=== PATIENT | female | born 1955 | race Caucasian/White ===

== ENCOUNTER → 2019-10-22 15:00 | Outpatient (CLI) | payer OTHER, SELFPAY ==
--- NOTE | ~2019-10-22 | US_ITS ---
EXAMINATION: US abdomen complete EXAM DATE: 10/22/2019 15:29 INDICATION: Generalized abdominal pain, tenderness. TECHNIQUE: Multiple grayscale and Doppler images of the complete abdomen were obtained (by a technolo gist who performed the scan) and subsequently reviewed. There is no prior study for comparison. FINDINGS: The abdominal aorta is normal in caliber. Visualized portion IVC is patent. The pancreatic head a nd body are normal in appearance. The pancreatic tail is not visualized. There is echogenic liver parenchyma, hepatic steatosis. There are couple of cysts measuring up to 2. 6 cm. There is no evidence of intrahepatic biliary duct dilation. Portal venous flow was seen in th e hepatopedal, normal direction and has normal Doppler waveform. Common bile duct measures 5 mm, which is normal. The gallbladder wall is normal in thickness, with ex pected amount of distention. No sonographic evidence of pericholecystic fluid. There is no cholelit hiases. Technologist performing exam reports patient did not demonstrate sonographic Lockhart's sign. Please note that this sign is less reliable in patients who have received pain medication. Right kidney: There is normal contour and echogenicity. It measures 9.3 x 4.8 x 5.5 centimeters. T here are no focal renal lesions identified. There is no hydronephrosis. Left kidney: There is normal contour and echogenicity. It measures 13.7 x 5.1 x 7.2 centimeters. Th ere is a cyst in the lower pole measuring 5 cm. There is no hydronephrosis. The spleen measures 11.7 centimeters and is morphologically normal. IMPRESSION: 1. Unremarkable complete abdominal ultrasound exam. Reviewed, dictated and finalized at location B. D PERSON
== END ==
PROVIDERS: Visit Provider Physician Assistant
DX: R10.84 Generalized abdominal pain (principal)
CPT/HCPCS: 76700

== ENCOUNTER → 2020-03-17 13:44 | Outpatient (CLI) | payer OTHER, SELFPAY ==
--- NOTE | ~2020-03-17 | XR_ITS ---
XR chest 2V DATE: 03/17/2020 14:04 INDICATION: Persistent cough TECHNIQUE: 2 views COMPARISON: 04/02/2019 AP and lateral chest FINDINGS: There is chronic mild discoid scarring in the left lower lung. No pulmonary infiltrate or c onsolidation, pleural effusion or pulmonary vascular congestion or pneumothorax is detected. Borderline heart size. environmental monitoring specialist device overlies the lower left chest. No hilar or mediastinal enlargement. IMPRESSION: Chronic mild discoid scarring in the left lower lung Reviewed, dictated and finalized at location B.
== END ==
PROVIDERS: PCP Family Medicine Adolescent Medicine; Visit Provider Family Medicine Adolescent Medicine
DX: R05 Cough (principal); R91.8 Other nonspecific abnormal finding of lung field
CPT/HCPCS: 71046

== ENCOUNTER 2021-01-22 09:11 | Outpatient (CLI) | payer OTHER, SELFPAY ==
--- NOTE | ~2021-01-22 | US_ITS ---
EXAMINATION: US carotid duplex BI DATE: 01/22/2021 09:55 INDICATION: Vertebral artery dissection TECHNIQUE: Grayscale, color Doppler, and pulsed Doppler images of the cervical carotid arteries were obtained. The degree of vessel stenosis is placed in one of the following categories: normal, <50%, 5 0-69%, >=70% but less than near-occlusion, near-occlusion, or total occlusion. Note that percent sten osis relative to normal distal artery lumen diameter is indirectly measured from velocity measurement s as described by Eliecer, et al. Radiology 2003; 229:340-346. Notes: Normal: Peak systolic velocity <125 centimeters/sec and no plaque <50%. Peak systolic velocity <125 ( EDV <40; ICA/CCA PSV ratio <2.0; used these factors only a tandem lesions or low cardiac output or co ntralateral disease) 50-69 %: PSV 125-230 (EDV 40-100; ratio 2-4) >= 70% but less than near occlusion: PSV greater than 230 (EDV > 100; ratio> 4.0) Near Occlusion: PSV that is variable; markedly narrowed lumen Occlusion: Absent flow on color/spectral Doppler and no lumen on caballero scale. COMPARISON: None. FINDINGS: RIGHT: The right common carotid artery (CCA) peak systolic velocity (PSV) is 76 cm/s. The right internal car otid artery (ICA) PSV is 76 cm/s. The right ICA end-diastolic velocity (EDV) is 28 cm/s. The right IC A/CCA PSV ratio is 1.0. The external carotid artery (ECA) PSV is 78 cm/s. There is antegrade flow in the right vertebral artery. LEFT: The left CCA PSV is 67 cm/s. The left ICA PSV is 63 cm/s. The left ICA EDV is 24 cm/s. The left ICA/C CA PSV ratio is 0.9. The ECA PSV is 89 cm/s. There is antegrade flow in the left vertebral artery. IMPRESSION: 1. Less than 50% stenosis in the right internal carotid artery by sonographic criteria. 2. Less than 50% stenosis in the left internal carotid artery by sonographic criteria. Reviewed, dictated and finalized at location A. IMPRESSION: 1. Less than 50% stenosis in the right internal carotid artery by sonographic melissa yuan. 2. Less than 50% stenosis in the left internal carotid artery by sonographic bayron bowman.
== END 2021-01-22 09:12 | disposition home or self-care (01) ==
LOC: ANHIMG 09:18
PROVIDERS: PCP Family Medicine Adolescent Medicine; Visit Provider Internal Medicine Cardiovascular Disease
DX: I77.9 Disorder of arteries and arterioles, unspecified (principal); I65.23 Occlusion and stenosis of bilateral carotid arteries
CPT/HCPCS: 93880

== ENCOUNTER → 2021-02-13 02:12 | Outpatient (CLI) | payer OTHER, SELFPAY ==
[2021-02-13 23:32] LABS: SARS-CoV-2 RNA PCR Negative
== END ==
PROVIDERS: PCP Family Medicine Adolescent Medicine; Visit Provider Internal Medicine Cardiovascular Disease
DX: Z01.812 Encounter for preprocedural laboratory examination (principal); Z20.822 Contact with and (suspected) exposure to COVID-19
CPT/HCPCS: C9803; U0003; U0005

== ENCOUNTER 2021-02-16 02:15 | Day surgery (SDC) | payer OTHER, SELFPAY ==
[2021-02-15 17:05] VITALS: BMI 35.3
[2021-02-16 11:39] VITALS: BP 139/82; PULSE 67; RESP 14; TEMP 36.2; O2SAT 95
--- NOTE | 2021-02-16 11:44 | P.HPUP_ITS ---
History and Physical Update Update Date/Time: Date of service: 02/16/21 11:44 History and Physical has been reviewed, including an updated exam of the patient. There are NO changes in the patient's condition. Risks, benefits, and alternatives have been discussed and questions answered. Patient agrees to proceed with procedure. Brief history of present illness: Patient is a pleasant 65-year-old female history normal coronary anatomy, recurrent syncope, lupus, diabetes mellitus, hypertension, fibromyalgia status post Medtronic loop recorder implantation with device at end of service scheduled for loop explant and implant of new device. Due to recall of Medtronic Reveal LINQ patient had previously been informed that alternative device with Biotronik would be utilized to which she agreed. This decision regarding implantation of a new device was made with Dr. Scanlon her regular visual effects artist previously. Past medical history: As above. Social history: , no alcohol tobacco Family history: No history of sudden cardiac otherwise not relevant. Review of systems: No fevers, chills. Patient reports feeling short of breath lying flat which is chronic, wear CPAP at night and oxygen. No recent illnesses, bleeding complications. A chest pain. Chronic arthritis pain. Review 12 systems otherwise unremarkable. Physical examination: Date 7.1 95% on room air respirations 14 blood pressure 139/82 heart rate 67 87.5 kg No apparent distress alert on x3 breathing comfortably speaking sentences nonfocal exam Neck supple no jugular venous distention Cardiac exam regular rate rhythm normal S1-S2 Lungs clear to auscultation no rales or wheezes minutes breath sounds at the bases otherwise Abdominal exam is obese soft nontender positive bowel sounds Extremities trace edema bilaterally no clubbing cyanosis Psychiatric mood: Appropriate Impression/plan: History of syncope etiology unclear status post loop recorder now at end of service. Decision made previously by Dr. Scanlon to implant new loop recorder which patient has been scheduled. Due to recall Medtronic device is a new Medtronic device cannot be implanted. Alternative with Biotronik had been discussed and previously agreed upon with plans to explant the Medtronic device and in a new pocket implant the Biotronik loop recorder. Discussed this once again in patient and her verbalized understanding and agreed with the plan of care.
--- NOTE | 2021-02-16 11:51 | PM.OP ---
Procedure Note - Brief Procedure Note - Brief Date of procedure: 02/16/21 Pre-op diagnosis: end of lift(service battery, syncope Procedure performed: Previously placed Loop recorder explant with implantation of new loop recorder device. Description of procedure: Brief history present illness: Patient is a 65-year-old female with history of HTN, DM, Obesity, SLE, JOSEPH, fibromyalgia, and h/o recurrent unexplained syncope status post Medtronic Reveal LINQ loop recorder implantation 01/2017 found to be at end of service with decision made between the patient and Dr. Scanlon to implant new loop recorder for further evaluation. Medtronic Reveal LINQ loop recorder explantation: After verbal and written informed consent was obtained from the patient risks, benefits, and alternatives explained in detail the patient agreed to proceed with the plan of care as outlined above. Patient was evaluated at bedside in the cardiac catheterization lab. Patient was placed the appropriate supine position. Left anterior chest wall was prepped and draped in the usual sterile fashion. Operators in appropriate sterile garb. After localization of the subcutaneous device, the area was then locally anesthetized using approximately 35cc of 1% Lidocaine as it was initially difficult to obtain adequate patient comfort. Subsequently, an approximate 1 cm incision was then made over the previous scar. Sharp and blunt dissection were then performed freeing previously placed Medtronic loop recorder without complication. The device and pocket were clean upon removal without evidence of infection. The pocket was then copiously flushed with Ancef antibiotic solution. Pocket was clean and satisfactory hemostasis was confirmed prior to proceeding to new device implant. Biotronik loop recorder implantation: Following removal of the old device, a new implant site was selected at approximately the 3rd intercostal space which was identified and marked prior to beginning the entire procedure. The 3rd intercostal space was felt to be superior as a matter of patient comfort given her anatomy with expected satisfactory functionality in consultation with Alejandra, the Biotronik device traveling representative. Utilizing approximately 25 cc of 1% subcutaneous lidocaine was administered at the left anterior chest wall at the new site and tract. After local anesthesia was achieved, 2 fingerbreadths left of the sternum at the 3th intercostal space was again identified and a 1 cm incision was made with the included skin punch tool. Following this with the included introducer/deployment tool was inserted subcutaneously and a tract was made subcutaneously at a 45 degree angle from the sternum. The device was then unlocked and loop recorder device delivered according to health informatics instructor's instruction easily and without complication. The deployment tool was then removed. Manual pressure was held for least 10 min with excellent hemostasis. The device was then interrogated and revealed excellent fidelity and measured at 0.4 mV. The Biotronik Biomonitor IIIm SN [id number] was implanted without complication. The incision was then approximated and closed using Steristrips. The incision was then covered with a sterile dressing. Complications: None Anesthesia: local Surgeon: Jose Montejo MD Drains: No Packing: No Pathology: none sent Complications: No immediate complications Condition: stable Disposition: same day Findings: Successful explantation of [employer]IQ LINQ [id number] loop recorder and subsequent implantation of a new Biotronik Biomonitor IIIm loop recorder without complication.
[2021-02-16 14:07] VITALS: BP 149/72; PULSE 73; RESP 20; O2SAT 99
== END 2021-02-16 15:51 | disposition home or self-care (01) ==
PROVIDERS: PCP Family Medicine Adolescent Medicine; Visit Provider Internal Medicine Cardiovascular Disease
PROC: (CPT 33286; principal; 2021-02-16 11:30)
PROC: (CPT 33285; 2021-02-16 11:30)
DX: Z45.09 Encounter for adjustment and management of other cardiac device (principal); R00.2 Palpitations; I10 Essential (primary) hypertension; G47.33 Obstructive sleep apnea (adult) (pediatric); M79.7 Fibromyalgia; R55 Syncope and collapse; E11.9 Type 2 diabetes mellitus without complications; K76.0 Fatty (change of) liver, not elsewhere classified; K58.9 Irritable bowel syndrome, unspecified; M19.90 Unspecified osteoarthritis, unspecified site; M32.9 Systemic lupus erythematosus, unspecified; R42 Dizziness and giddiness; Z79.82 Long term (current) use of aspirin
CPT/HCPCS: 33285; 33286; C1764; J0690; J7040

== ENCOUNTER → 2022-07-25 16:01 | Outpatient (CLI) | payer MEDICARE, SELFPAY ==
--- NOTE | ~2022-07-25 | XR_ITS ---
EXAMINATION: XR chest 2V DATE: 07/25/2022 16:40 INDICATION: Shortness of breath TECHNIQUE: PA and lateral views of the chest are obtained. COMPARISON: 03/17/2020 FINDINGS: There is chronic atelectasis or scarring of the left lung base. No acute airspace opacities are identified. No pleural effusion or pneumothorax. The cardiomediastinal silhouette is normal. The re is mild thoracic spondylosis. A cardiac monitoring device is implanted in the left lower anterior chest wall. IMPRESSION: 1. No acute cardiopulmonary abnormality. Reviewed, dictated and finalized at location F. ON PICTURES CARTOONIST
== END ==
PROVIDERS: PCP Family Medicine Adolescent Medicine; Visit Provider Physician Assistant
DX: R06.02 Shortness of breath (principal)
CPT/HCPCS: 71046

== ENCOUNTER 2022-08-06 06:55 | Outpatient (CLI) | payer MEDICARE, SELFPAY ==
--- NOTE | ~2022-08-06 | CT_ITS ---
EXAMINATION: CTA chest PE protocol DATE: 08/06/2022 07:23 INDICATION: New onset dyspnea, tachycardia. Cough. TECHNIQUE: Computed tomography angiography (CTA) of the chest was performed with 100 mL Omnipaque-350 intravenous contrast timed to evaluate the pulmonary arteries. Coronal maximum intensity projection 3D-reconstructions were created by the technologist. Automated exposure control and iterative reconst ruction technique were employed. Exam dose: 463.78 mGy-cm total exam DLP. COMPARISON: 07/25/2022 2 view chest 01/04/2013 CT chest high resolution scan FINDINGS: Patchy groundglass density of the base of the lingula and involving both lower lobes, sugge sting atelectasis. 5 mm anterior segment left upper lobe pulmonary nodule (series 4 image 30). 2.5 mm left apical high density nodule, likely a small calcified pulmonary granuloma (series 4 image 18). 2.5 mm lingular peripheral nodular density (image 51). Possible 6 minimal new left lower lobe pulmonary nodular density (image 62). No evidence of pulmonary embolism. No thoracic aortic aneurysm or dissection. No hilar or mediastinal mass lesion or lymphadenopathy. Cardiomegaly. No pericardial or pleural effusion. Small sliding hiatal hernia. Included portions of the adrenal glands are unremarkable. 2.6 cm left hepatic cyst suspected 1 cm right hepatic cyst. Included skeletal structures are unremarkable. IMPRESSION: Mild atelectasis of the lingula and lower lobes Occasional pulmonary nodular densities; if there are no significant risk factors such as smoking or r trend investigator exposure, consider CT thorax follow-up in 12 months; if there are risk factors for lung cancer, consider [address] thorax follow-up Cardiomegaly Small sliding hiatal hernia Probable hepatic cysts Reviewed, dictated and finalized at Location A. Reviewed, dictated and finalized at location B. CASTING MACHINE OPERATOR HELPER IMPRESSION: Mild atelectasis of the lingula and lower lobes Occasional pulmonary nodular densities; if there are no significant risk factor s such as smoking or radon exposure, consider CT thorax follow-up in 12 months; if there are risk factors for lung cancer, consider [address] thorax follow-u p Cardiomegaly Small sliding hiatal hernia Probable hepatic cysts
[2022-08-06 07:19] LABS: Estimated Glomerular Filt Rate > 60
== END 2022-08-06 06:56 | disposition home or self-care (01) ==
PROVIDERS: PCP Family Medicine Adolescent Medicine; Visit Provider Physician Assistant
DX: R06.02 Shortness of breath (principal); J98.11 Atelectasis; R91.8 Other nonspecific abnormal finding of lung field; I51.7 Cardiomegaly; K44.9 Diaphragmatic hernia without obstruction or gangrene; K76.89 Other specified diseases of liver
CPT/HCPCS: 71275; Q9967

== ENCOUNTER 2022-11-12 13:47 | Outpatient (CLI) | payer MEDICARE, SELFPAY ==
--- NOTE | ~2022-11-12 | US_ITS ---
EXAMINATION: US venous doppler LE DATE: 11/12/2022 14:22 INDICATION: M79.604 - Pain in right leg . TECHNIQUE: Grayscale images without and with compression and Doppler images of the right lower extrem ity veins were obtained. COMPARISON: None FINDINGS: The right common femoral vein, profunda (deep) femoral vein, femoral vein, popliteal vein, peroneal v ein, posterior tibial veins, gastrocnemius vein, and greater saphenous vein are patent. IMPRESSION: 1. Patent right lower extremity veins. No evidence of deep venous thrombosis. Reviewed, dictated and finalized at location K. COMMUNICATIONS MANAGER
== END 2022-11-12 13:48 | disposition home or self-care (01) ==
PROVIDERS: PCP Family Medicine Adolescent Medicine; Visit Provider Physician Assistant
DX: M79.604 Pain in right leg (principal)
CPT/HCPCS: 93971

== ENCOUNTER 2023-07-23 12:27 | Outpatient (CLI) | payer MEDICARE, SELFPAY ==
[2023-07-23 13:22] LABS: Basophils Absolute Auto 0.1 K/mm3 (0.0-0.1); Basophils Percent Auto 0.9 % (0.2-1.2); Eosinophils Absolute Auto 0.1 K/mm3 (0-0.3); Eosinophils Percent Auto 1.3 % (0-4.4); Hematocrit 46.9 % (37.0-47.0); Immature Granulocyte Absolute 0.08 K/mm3 (0.00-0.031); Immature Granulocyte Percent A 0.8 % (0-0.5); Lymphocytes Absolute Auto 0.96 K/mm3 (0.9-3.2); Lymphocytes Percent Auto 9.1 % (18.3-44.2); Mean Corpuscular Hemoglobin 30.2 pg (26-34); Mean Corpuscular Volume 94.6 fl (80-100); Mean Platelet Volume 10.1 fl (7.4-10.4); Monocytes Absolute Auto 0.5 K/mm3 (0.1-0.6); Monocytes Percent Auto 4.7 % (2.6-8.5); Neutrophils Absolute Auto 8.8 K/mm3 (1.3-6.7); Neutrophils Percent Auto 83.2 % (45.5-73.1); Platelet Count Result 299 k/mm3 (150-375); Red Blood Count 4.96 M/mm3 (4.2-5.4); Red Cell Distribution Width 13.2 % (11.5-14.5); White Blood Count 10.6 K/mm3 (4.5-10.0)
[2023-07-23 13:31] LABS: Alanine Aminotransferase 40 U/L (6-35); Albumin Level 4.4 g/dL (3.5-5.1); Alkaline Phosphatase 91 U/L (38-126); Anion Gap 10 mmol/L (8-16); Aspartate Amino Transferase 37 U/L (14-36); Bilirubin,Total 0.9 mg/dL (0.2-1.3); Blood Urea Nitrogen 25 mg/dL (7-17); Calcium 9.4 mg/dL (8.4-10.2); Carbon Dioxide 27 mmol/L (22-30); Chloride 96 mmol/L (98-107); Estimated Glomerular Filt Rate > 60; Glucose 397 mg/dL (65-110); Potassium 4.3 mmol/L (3.4-5.0); Sodium 133 mmol/L (137-145)
[2023-07-23 13:53] LABS: Hemoglobin A1C 9.6 % (<5.7)
== END 2023-07-23 12:28 | disposition home or self-care (01) ==
PROVIDERS: PCP Family Medicine Adolescent Medicine; Visit Provider Internal Medicine Cardiovascular Disease
DX: Z01.810 Encounter for preprocedural cardiovascular examination (principal); R94.39 Abnormal result of other cardiovascular function study; R06.09 Other forms of dyspnea; R07.89 Other chest pain
CPT/HCPCS: 36415; 80053; 83036; 85025

== ENCOUNTER 2024-03-02 11:53 | Outpatient (CLI) | payer MEDICARE, SELFPAY ==
--- NOTE | ~2024-03-02 | XR_ITS ---
Left Knee Technique: AP, lateral, and sunrise views were obtained. Clinical History: Injury Findings: No fracture or dislocation is seen. Osseous alignment is anatomic. There is minimal tricomp artmental spurring. Soft tissues are unremarkable. No joint effusion is seen. Impression: Minimal degenerative spurring. Reviewed, dictated and finalized at [facility]. Impression: Minimal degenerative spurring.
== END 2024-03-02 11:54 ==
LOC: MICIMG 11:56
PROVIDERS: PCP Family Medicine Adolescent Medicine; Visit Provider Family Medicine Adolescent Medicine
DX: M17.12 Unilateral primary osteoarthritis, left knee (principal)
CPT/HCPCS: 73562

== ENCOUNTER 2025-01-14 09:49 | Outpatient (CLI) | payer MEDICARE, SELFPAY ==
--- OUTSIDE RECORDS SUMMARY | 2025-01-14 09:56 | XMS_ITS | Clinical Summary ---
Author Organization 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 Elevated LFT's Blindness, Elevated liver enzymes Latex Rash Medium 09/09/2016 Nitrofurantoin Swelling,Rash High 11/12/2018 Sulfa (Sulfonamide Antibiotics) Shortness of breath,Urticaria High 12/25/2017 Sulfasalazine Shortness of breath,Urticaria High 12/25/2017 Medications aspirin 81 mg tablet take 1 tablet (81MG) by oral route every day [address] (NexIUM) 40 mg capsule take 1 capsule (40MG) by oral route every day 0 2 Active fluticasone (FLONASE) 50 mcg/actuation nasal spray inhale 2 spray by Intranasal route every day in each nostril 0 spray 0 6 Active ALPRAZolam (XANAX) 1 mg tablet take 1 tablet by oral route 3 times every day 0 0 6 Active oxygen 4 L/min by Not Applicable route nightly Active benzonatate (TESSALON) 200 mg capsule TK ONE C PO TID PRN 0 9 Active nitroglycerin (NITROSTAT) 0.[address] 1 TABLET UNDER THE TONGUE PRN FOR CHEST PAIN OR DYSPNEA 9 Active HYDROcodone-aceta minophen (NORCO) 5-325 mg per tablet 0 Active loratadine (CLARITIN) 10 mg tablet Take 1 tablet (10 mg total) by mouth daily Active ascorbic acid with telma hips 500 mg tablet 0 Active ferrous sulfate 325 mg (65 mg of elemental iron) tablet Take 1 tablet (325 mg total) by mouth every other day 0 Active azelastine (ASTELIN) 137 mcg (0.1 %) nasal spray USE 1 SPRAY IN EACH NOSTRIL TWICE DAILY 1 Active aluminum-magnesiu m hydroxide-simethi cone (MAALOX MAX) suspension 400-400-40 mg/5 mL Take by mouth as needed Active psyllium 0.52 gram capsule Take 1 capsule (0.52 g total) by mouth 2 (two) times a day 2 Active multivitamin capsule Take 1 capsule by mouth daily Active furosemide (LASIX) 20 mg tablet Take 2 tablets (40 mg total) by mouth daily 2 Active propranolol LA (INDERAL LA) 120 mg 24 hr capsule Take 1 capsule (120 mg total) by mouth daily 3 Active Flutura SolutionsTouch Verio Flex meter misc as directed 3 Active Flutura SolutionsTouch Verio test strips strip USE TO TEST ONCE A DAY 3 Active Flutura SolutionsTouch Delica Plus Lancet 30 gauge misc USE TO TEST GLUCOSE ONCE A DAY 4 Active metFORMIN XR (GLUCOPHAGE XR) 500 mg 24 hr tablet Take 1 tablet (500 mg total) by mouth 2 (two) times a day 4 Active primidone (MYSOLINE) 50 mg tablet Take 2 tablets (100 mg total) by mouth nightly 4 Active alendronate (FOSAMAX) 70 mg tablet Take 1 tablet (70 mg total) by mouth every 7 days 4 Active calcium carbonate-vitamin D3 (CALTRATE 600 + D) 1500 mg (600 mg elemental) -400 units per tablet Take 1 tablet by mouth daily Active atorvastatin (LIPITOR) 20 mg tabletIndications :Hyperlipidemia associated with type 2 diabetes mellitus (HCC) Take 1 tablet (20 mg total) by mouth daily 90 tablet 3 4 Active zinc gluconate 50 mg tablet Take 1 tablet (50 mg total) by mouth daily Active budesonide-formot Skyler (SYMBICORT) 160-4.5 mcg/actuation inhaler Inhale 2 puffs 2 (two) times a day Active clobetasoL (TEMOVATE) 0.05 % cream Apply topically 5 Active Mounjaro 10 mg/0.5 mL pen injector injection Inject 0.5 mL (10 mg total) under the skin once a week 5 Active azaTHIOprine (IMURAN) 50 mg tabletIndications :Systemic lupus erythematosus with other organ involvement, unspecified SLE type (HCC) Take 2 tablets (100 mg total) by mouth daily 180 tablet 1 5 Active Active Problems Problem Noted Date Diagnosed Date Abnormal stress test 07/01/2023 Stress incontinence 11/08/2021 Left flank pain 11/08/2021 Recurrent UTI 11/08/2021 Visit for wound check 03/05/2021 Fatty liver disease, nonalcoholic 02/23/2020 MARTE (dyspnea on exertion) 02/05/2019 Left arm pain 11/03/2018 Status post placement of implantable loop record er 03/21/2018 Overview (02/19/2021): [employer]-Biomonitor III ILR. Dx; Syncope, Palpitations. DOI 02/16/2021. [place]. Biotronik remote. Medtronic Linq ILR explanted. 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 Overview (12/14/2016): Vertebral artery disease Edema of lower extremity 05/15/2016 Overview (12/14/2016): Edema of both legs Hyperlipidemia LDL goal <70 05/15/2016 Overview (12/14/2016): Hyperlipidemia LDL goal <70 Hypertension associated with diabetes 02/22/2016 Overview (12/13/2016): Essential hypertension Palpitations 02/22/2016 Overview (12/14/2016): Palpitations Chest pressure 02/22/2016 Overview (12/14/2016): Atypical chest pain Obesity with body mass index 30 or greater 02/21 Overview (12/14/2016): Obesity (BMI 35.0-39.9 without comorbidity) Abnormal electrocardiography 02/22/2016 Overview (12/14/2016): Abnormal EKG Rash 12/21/2012 Osteoporosis 01/05/2011 Overview (12/19/2017): Description: Osteoporosis Fibromyalgia 12/08/2010 Overview (12/19/2017): Description: Fibromyalgia Assessment & Plan (10/31/2021 5:38 PM CAREER PROFESSIONAL): Trigger point pain and hand pain without exam findings suggestive of active inflammation. She remains off of lyrica at this time. - continue to monitor symptoms off of lyrica - continue physical therapy Systemic lupus erythematosus 12/08/2010 Overview (12/19/2017): Description: Systemic Lupus Erythematosus Assessment & Plan (10/31/2021 5:41 PM CAREER PROFESSIONAL): Currently without exam features concerning for active inflammation of joints and improved skin rash with decreased azathioprine dosing. Side effects from medication also improved with decreased dosing. Currently, complaints of pain and fatigue appear more consistent with fibromyalgia. - further decrease to azathioprine 50 mg BID - encouraged patient to receive COVID-19 booster dose 6 months after last dose (due: 11/2021) Trochanteric bursitis 12/08/2010 Overview (12/19/2017): Description: Trochanteric Bursitis Encounters Date Type Department Care Team Description 01/10/2025 8:00 AM CDT Ancillary Procedure [facility] Cardiology [address] [place] [phone] Status post placement of implantable loop recorder (Primary Dx); Syncope, unspecified syncope type; Palpitations 12/08/2024 1:46 PM CDT - 12/08/2024 11:59 PM CDT Hospital Encounter [address] [address] Systemic lupus erythematosus with other organ involvement, unspecified SLE type (HCC); Fibromyalgia; High risk medication use Discharge Disposition: Discharge to home or self care 12/08/2024 12:10 PM CDT Lab [facility] Endocrinology Metabolism and Lipid [address] [facility] [address] [place] [phone] Systemic lupus erythematosus with other organ involvement, unspecified SLE type (HCC); Fibromyalgia; High risk medication use 12/08/2024 11:00 AM CDT Office Visit [facility] Rheumatology [address] [facility] [address] [place] [address] Rosa Tapia MD Systemic lupus erythematosus with other organ involvement, unspecified SLE type (HCC) (Primary Dx); Fibromyalgia; High risk medication use 11/29/2024 7:45 AM CDT Ancillary Procedure [facility] Cardiology [address] [place] [phone] Status post placement of implantable loop recorder (Primary Dx); Syncope, unspecified syncope type; Palpitations 10/18/2024 7:30 AM CAREER PROFESSIONAL Ancillary Procedure [facility] Cardiology [address] [place] [phone] Status post placement of implantable loop recorder (Primary Dx); Syncope, unspecified syncope type; Palpitations 10/18/2024 Orders Only [facility] Cardiology [address] [place] [phone] Kit Scanlon MD Syncope, unspecified syncope type (Primary Dx); Status post placement of implantable loop recorder; Palpitations from Last 3 Months Surgical History Surgery Date Site/Laterality Comments HYSTERECTOMY SECTION BACK SURGERY CATARACT EXTRACTION Medical History Medical History Date Comments Lupus Diabetes mellitus (HCC) Fibromyalgia Osteoarthritis Hypertension Fatty liver Irritable bowel disease Family History Medical History Relation Name Comments Heart disease Father Stroke Maternal Grandfather Stroke; Heart attack Maternal Grandmother Myocard ial infarction; Cause of : Myocardial infarction Lupus Mother Other Mother Lupus; Cause of : Lupus Relation Name Status Comments Father Maternal Grandfather Maternal Grandmother Mother Social History Tobacco Use Types Packs/Day Years Used Date Smoking Tobacco: Never Smokeless Tobacco: Never Tobacco Cessation:Counseling Given: Not Answered Alcohol Use Standard Drinks/Week Comments Yes 2 (1 standard drink = 0.6 oz pur e alcohol) monthly AUDIT-C Answer Date Recorded Q1: How often do you have a drink containing alcohol? Never 07/25/2023 Q2: How many drinks containi ng alcohol do you have on a typical day when you are drinking? Patient does not drink Q3: How often do you have si x or more drinks on one occasion? Never 07/25/2023 Personal Safety Answer Date Recorded Have you ever been in or are you currently in a harmful physical or emotional relationship or is someone making you feel afraid or unsafe? Denies 07/25/2023 Comments No Sex and Gender Information Value Date Recorded Sex Assigned at Not on file Legal Sex Female 9:06 AM CAREER PROFESSIONAL Gender Identity Female 01/18/2020 10:01 AM CDT Sexual Orientation Straight 01/18/2020 10 :00 AM CDT Obstetrics History Last Filed Vital Signs Vital Sign Reading Time Taken Comments Blood Pressure 115/78 12/08/2024 11:15 AM CDT Pulse 103 12/08/2024 11:15 AM CDT Temperature 36.8 C (98.3 F) 12/08/2024 11:15 AM CDT Respiratory Rate 16 07/25/2023 8:42 AM CAREER PROFESSIONAL Oxygen Saturation 95% 09/21/2024 9:37 AM CAREER PROFESSIONAL Inhaled Oxygen Concentration - - Weight 85.7 kg (189 lb) 12/08/2024 11:15 AM CDT Height 157.5 cm (5' 2 ) 12/08/2024 11:15 AM CDT Body Mass Index 34.57 12/08/2024 11:15 AM CDT Plan of Treatment Health Maintenance Due Date Last Done Comments Albumin Creatinine Ratio, Urine 1953 Colon Cancer Screening-Colonoscopy 1955 Depression Screening 1955 Hepatitis C Screening 1955 Dilated Eye Exam 1953 Foot Exam 1953 Hepatitis B Screening 12/11/1971 Zoster Vaccine (1 of 2) 1972 Well Visit 65+ 2018 Covid-19 Vaccine (2023-2 5 season) 2024 06/16/2023, 07/22/2022, 12/05/2021, Additional history exists Fall Risk Assessment 07/25/2024 07/25/2023 Pneumococcal vaccine 65+ (4 of 4 - PCV20 or PCV21) 04/25/2025 04/25/2020, 04/27/2015, 11/07/2009 Hemoglobin A1C 05/05/2025 11/05/2024, 05/10, 09/03/2023, Additional history exists Influenza Vaccine (Season Ended) 2025 06/16/2023, 07/22/2022, 06/21/2020, Additional history exists Lipid Panel 09/21/2025 09/21/2024, 03/09, 06/11/2023, Additional history exists Breast Cancer Screening-Mammogram 11/23/2025 11/23/2024, 11/23/2024, 11/21/2023, Additional history exists eGFR 12/08/2025 12/08/2024, 05/10, 12/24/2023, Additional history exists Osteoporosis Screening-Bone Density Scan 01/04/2026 01/05/2024, 01/05/2024, 02/02/2019, Additional history exists DTaP/Tdap/Td Vaccine (2 - Td or Tdap) 06/16/2033 06/16/2023 Medical Devices Implanted Type Area [employer] Device Identifier Shelf Expiration Date Model / Serial / Lot SkillSlate Device Closure Vascade Od5 Fr Femoral Artery [id number] - [id number] Implanted:Qty: 1 on 07/25/2023 by Noma Leblanc MD at [facility] [employer] 01/18/2024 [id number] / / [id number] Procedures Procedure Name Priority Date/Time Associated Diagnosis Comments DEVICE CHECK - REMOTE Routine 01/10/2025 3:09 PM CDT Syncope, unspecified syncope type Palpitations URINALYSIS, MICROSCOPIC ONLY Routine 12/08/2024 11:59 AM CDT Systemic lupus erythematosus with other organ involvement, unspecified SLE type (HCC) Fibromyalgia High risk medication use ANTI-DOUBLE STRANDED DNA ANTIBODIES Routine 12/08/2024 11:59 AM CDT Systemic lupus erythematosus with other organ involvement, unspecified SLE type (HCC) Fibromyalgia High risk medication use C4 COMPLEMENT Routine 12/08/2024 11:59 AM CDT Systemic lupus erythematosus with other organ involvement, unspecified SLE type (HCC) Fibromyalgia High risk medication use C3 COMPLEMENT Routine 12/08/2024 11:59 AM CDT Systemic lupus erythematosus with other organ involvement, unspecified SLE type (HCC) Fibromyalgia High risk medication use ERYTHROCYTE SEDIMENTATION RATE Routine 12/08/2024 11:59 AM CDT Systemic lupus erythematosus with other organ involvement, unspecified SLE type (HCC) Fibromyalgia High risk medication use CRP (ACUTE PHASE) Routine 12/08/2024 11: 59 AM CDT Systemic lupus erythematosus with other organ involvement, unspecified SLE type (HCC) Fibromyalgia High risk medication use COMPREHENSIVE METABOLIC PANEL Routine 12/08/2024 11:59 AM CDT Systemic lupus erythematosus with other organ involvement, unspecified SLE type (HCC) Fibromyalgia High risk medication use CBC WITH AUTO DIFFERENTIAL Routine 12/08/2024 11:59 AM CDT Systemic lupus erythematosus with other organ involvement, unspecified SLE type (HCC) Fibromyalgia High risk medication use URINE CULTURE Routine 12/08/2024 11:59 AM CDT URINALYSIS AND REFLEX TO MICROSCOPIC AND CULTURE Routine 12/08/2024 11:59 AM CDT Systemic lupus erythematosus with other organ involvement, unspecified SLE type (HCC) Fibromyalgia High risk medication use DEVICE CHECK - REMOTE Routine 11/30/2024 7:52 AM CDT Syncope, unspecified syncope type Palpitations DEVICE CHECK - REMOTE Routine 10/18/2024 10:02 AM CAREER PROFESSIONAL Syncope, unspecified syncope type Palpitations POCT LIPID PANEL Routine 09/21/2024 10:2 1 AM CAREER PROFESSIONAL Lipid screening HEMOGLOBIN A1C Routine 06/02/2024 10:20 AM CDT Systemic lupus erythematosus with other organ involvement, unspecified SLE type (HCC) Fibromyalgia High risk medication use from Last 3 Months or Most Recently Relevant to Health Maintenance Results * DEVICE CHECK - REMOTE (01/10/2025 3:09 PM CDT) Anatomical Region Laterality Modality Other Narrative 01/13/2025 8:24 AM CDT [employer]-Biomonitor III ILR. Dx; Syncope, Palpitations. DOI 02/16/2021. [place]. [place] [employer] remote. Routine ILR remote. Normal device function. Battery function-Ok. Presenting rhythm: VS, regular 90 bpm. Medications: ASA 81 mg, Propranolol Counters since last scheduled transmission on 11/29/2024. No auto or patient recorded episodes noted. See scanned report. [employer] remote f/u 02/21/2025. Kina Almeida, RN Kit Scanlon MD CV CARDIAC [facility] Final Result * Anti-double stranded DNA abs (12/08/2024 11:59 AM CDT) dsDNA Ab 1.0 <=4.0 IUnits/mL Comment: Interpretive Data Negative: < or = 4 IUnits/mL Indeterminate: 5 - 9 IUnits/mL Positive: > or = 10 IUnits/mL Current interpretive data was last revised on 2017. Blood 12/08/2024 11:5 9 AM CDT 12/08/2024 2:19 PM CDT Rosa Tapia MD LAB BLOOD ORDERABLES Final Result Performing Organization Address [facility]/ZIP Co de Phone Number [facility] Department [place] [address] * C4 complement (12/08/2024 11:59 AM CDT) Pathologist [facility] Complement C4 29.1 10.0 - 40.0 mg/dL Blood 12/08/2024 11:5 9 AM CDT 12/08/2024 2:19 PM CDT Rosa Tapia MD LAB BLOOD ORDERABLES Final Result Performing Organization Address [facility] de Phone Number [facility] [place] [place] [address] * (ABNORMAL) Urinalysis reflex to microscopic and culture Urine, clean voided (12/08/2024 11:59 AM CDT) Color, ur Yellow Yellow Clarity, ur Clear Clear [facility] Specific gravity, ur 1.025 1.003 - 1.030 [facility] pH, urine 6.5 [facility] Comment: Interpretive Data U rine pH is affected by diet, medications, systemic acid-base disturbances, and renal tubular function. pH may affect urinary stone formation. For example, urine pH below 6.0 may help reduce the tendency for calcium phosphate stones and pH greater than 6.0 may reduce the tendency for uric acid stone formation. Source: [facility] Laboratories Current Interpretive Data was last revised on 2017 Protein, ur ql Trace Negative [facility] Glucose, ur ql Negative Negative [facility] Ketones, ur Negative Negative [facility] Bilirubin, ur Negative Negative [facility] Blood, ur Negative Negative [facility] Urobilinogen, ur <2.0 <2.0 mg/dL [facility] Nitrite, ur Negative Negative [facility] Leukocyte esterase, ur 3+(A) Negative [facility] UA reflex comment Reflex to microscopic UA will be performed. [facility] Urine, clean voided 12/08/2024 11:59 AM CDT 12/08/2024 2:19 PM CDT us Rosa Tapia MD LAB MICROBIOLOGY - GENERAL ORDERABLES Final Result [facility] Department [place] [address] * (ABNORMAL) CBC with auto differential (12/08/2024 11:59 AM CDT) White Blood Count 6.8 3.6 - 11.2 K/uL [facility] RBC 4.90 3.63 - 4.92 M/uL [facility] Hemoglobin 14.8 11.9 - 15.5 g/dL [facility] Hematocrit 44.7(H) 36.1 - 44.3 % [facility] MCV 91.3 80.0 - 97.6 fL [facility] MCH 30.2 26.7 - 33.7 pg [facility] MCHC 33.1 32.7 - 35.5 g/dL [facility] RBC Dist Width 14.5 12.3 - 17.0 % [facility] Platelet Count 315 140 - 440 K/uL [facility] MPV 7.9 6.8 - 10.4 fL [facility] Neutrophils % 70.6 38.7 - 74.5 % [facility] Lymphocyte % 19.3(L) 20.0 - 54.3 % [facility] Monocytes % 6.1 4.3 - 13.5 % [facility] Eosinophils % 3.0 0.0 - 6.0 % [facility] Basophil % 1.0 0.0 - 3.0 % [facility] Absolute Neutrophil 4.8 1.8 - 6.6 K/uL [facility] Absolute Lymphocyte 1.3 0.8 - 3.3 K/uL [facility] Absolute Monocyte 0.4 0.2 - 1.2 K/uL [facility] Absolute Eosinophil 0.2 0.0 - 0.5 K/uL [facility] Absolute Basophil 0.1 0.0 - 0.2 K/uL [facility] Nucleated RBC % 0.0 0.0 - 0.4 /100 WBC [facility] Blood 12/08/2024 11:5 9 AM CDT 12/08/2024 12:51 PM CDT Rosa Tapia MD LAB BLOOD ORDERABLES Final Result Performing Organization Address City/[facility] Co de Phone Number [facility] * (ABNORMAL) Urinalysis, microscopic only (12/08/2024 11:59 AM CDT) WBC, ur 21-50(A) 0 - 5 /HPF RBC, ur 11-20(A) 0 - 2 /HPF [facility] Epithelial cells, squamous, ur 1-5 0 - 5 /HPF [facility] Epithelial cells, renal, ur 1-5(A) 0 - 0 /HPF [facility] Bacteria, ur Trace(A) [facility] Mucous, ur Present(A) [facility] Calcium oxalate crystals, ur 2+(A) [facility] Culture Reflex Comment Reflex to urine culture will be performed. [facility] Urine, clean voided 12/08/2024 11:59 AM CDT 12/08/2024 2:19 PM CDT us Rosa Tapia MD LAB URINE ORDERABLES Final Result Performing Organization Address City/[facility]/ZIP Co de Phone Number [facility] [place] [address] * Erythrocyte sedimentation rate (12/08/2024 11:59 AM CDT) Erythrocyte sedimentation rate 10 1 - 30 mm/hr Blood 12/08/2024 11:5 9 AM CDT 12/08/2024 2:19 PM CDT Rosa Tapia MD LAB BLOOD ORDERABLES Final Result Performing Organization Address [facility] de Phone Number [facility] [place] [address] * Urine culture Urine, clean voided (12/08/2024 11:59 AM CDT) Report Final Report: Less than 100,000 colonies/mL (clinically insignificant growth based on current clinical standards) Organism (CLINICALLY INSIGNIFICANT GROWTH [facility] Urine, clean voided 12/08/2024 11:59 AM CDT 12/08/2024 4:14 PM CDT Narrative [facility] - 12/09/2024 6:38 PM CDT Urine culture reflexed based upon urinalysis results. Testing performed by [facility] Microbiology Laboratory ([phone]) Rosa Tapia MD LAB MICROBIOLOGY - GENERAL ORDERABLES Final Result Performing Organization Address [facility] de Phone Number [facility] [place] [address] * C3 complement (12/08/2024 11:59 AM CDT) Complement C3 165.0 90.0 - 180.0 mg/dL Blood 12/08/2024 11:5 9 AM CDT 12/08/2024 2:19 PM CDT Rosa Tapia MD LAB BLOOD ORDERABLES Final Result Performing Organization Address [facility] Co de Phone Number [facility] Department [place] [address] * CRP (acute phase) (12/08/2024 11:59 AM CDT) C-Reactive Protein, Acute 3.6 <5.0 mg/L [facility] Blood 12/08/2024 11:5 9 AM CDT 12/08/2024 12:51 PM CDT us Rosa Tapia MD LAB BLOOD ORDERABLES Final Result [facility] * (ABNORMAL) Comprehensive metabolic panel (12/08/2024 11:59 AM CDT) Total Protein 7.4 6.1 - 8.4 g/dL [facility] Albumin 4.1 3.5 - 5.2 g/dL [facility] Calcium 9.4 8.6 - 10.3 mg/dL [facility] BUN 16 7 - 23 mg/dL [facility] Total Bilirubin 0.24 0.20 - 1.40 mg/dL [facility] Alk Phos, Total 75 35 - 129 IU/L [facility] AST (SGOT) 21 11 - 47 IU/L [facility] ALT (SGPT) 17 6 - 53 IU/L [facility] Creatinine 0.79 0.60 - 1.10 mg/dL [facility] Sodium 143 135 - 145 mmol/L [facility] Potassium 3.7 3.3 - 5.1 mmol/L [facility] Chloride 106 95 - 107 mmol/L [facility] CO2 Content 27 21 - 29 mmol/L [facility] Glucose 130(H) 64 - 99 mg/dL [facility] Comment: NONFASTING GLUCOSE RANGE = 64-199 mg/dL FASTING GLUCOSE 64 - 99 = NORMAL FASTING GLUCOSE 100 - 125 = IMPAIRED FASTING GLUCOSE FASTING GLUCOSE >=126 = PROVISIONAL DIAGNOSIS OF DIABETES eGFR 80.4 >60.0 mL/min/1.7 3 m2 [facility] Blood 12/08/2024 11:5 9 AM CDT 12/08/2024 12:51 PM CDT Rosa Tapia MD LAB BLOOD ORDERABLES Final Result [facility] * DEVICE CHECK - REMOTE (11/30/2024 7:52 AM CDT) Anatomical Region Laterality Modality Other Narrative 12/02/2024 12:09 PM CDT [employer]-Biomonitor III ILR. Dx; Syncope, Palpitations. DOI 02/16/2021. [place]. [employer] remote. Routine ILR remote. Normal device function. Battery function-Ok. Presenting rhythm: VS, regular 90 bpm. Medications: ASA 81 mg, Propranolol Counters since last scheduled transmission on 10/18/2024. No auto or patient recorded episodes noted. See scanned report. [employer] remote f/u 01/10/2025. Kina Almeida RN Kit Scanlon MD [facility] Final Result * DEVICE CHECK - REMOTE (10/18/2024 10:02 AM CAREER PROFESSIONAL) Anatomical Region Laterality Modality Other Narrative 10/25/2024 12:26 PM CAREER PROFESSIONAL Biotronik lllm implanted on February 16, 2021 for syncope. Patient had a routine remote transmission on October 18, 2024 Medications: ASA 81 mg daily Interrogation of the patients device demonstrates appropriate loop function (0) Symptom events Auto Device detected events of, (0) Pause, (0) Bradycardia, (0) Tachy, (0) AT, (0) AF, Presenting Rhythm: Normal sinus rhythm at 96 bpm Battery: OK at < 50% Plan: 1) Scheduled routine remote with no new episode. 2) Continue to monitor remotely. Yordan Steinberg Device Primer Inserting Machine Operator Kit Scanlon MD CV CARDIAC SERVICES PROCE DURES Final Result * POCT lipid panel (09/21/2024 10:21 AM CAREER PROFESSIONAL) Cholesterol, POC 152 mg/dL HDL, POC 45 mg/dL Triglycerides, POC 183 mg/dL LDL Cholesterol POC 70 mg/dL Chol/HDL Ratio, POC 1.5 Non-HDL Cholesterol, POC 106 mg/dL Cholesterol Total, POC 152 mg/dL Capillary blood 09/21/2024 1 0:21 AM CAREER PROFESSIONAL Blanquita Morales NP POINT OF CARE TEST ORDERA BLES Final Result from Last 3 Months or Most Recently Relevant to Health Maintenance Additional Health Concerns Infection Onset Date Last Indicated 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
--- OUTSIDE RECORDS SUMMARY | 2025-01-14 09:57 | XMS_ITS | Encounter Summary ---
Author Organization [facility] Address [address] [place] [address] Care Team Providers Care Piano Case And Bench Assembler Name Role Phone Lalo Le MD Primary Care Prov ider Encounter Details Date Type Department Care Team (Late st Contact Info) Description 02/04/2017 Orders Only [facility] ProviderMarquise MD [address] [place] [id number] Social History Tobacco Use Types Packs/Day Years Used Date Smoking Tobacco: Never Alcohol Use Standard Drinks/Week Comments Yes 0 (1 standard drink = 0.6 oz pur e alcohol) Comments Unknown Sex and Gender Information Value Date Recorded Sex Assigned at Not on file Legal Sex Female 9: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
--- OUTSIDE RECORDS SUMMARY | 2025-01-14 09:57 | XMS_ITS | Encounter Summary ---
Author Organization [facility] Address [address] [place] [address] Care Team Providers Care Engineering Executive Name Role Phone Lalo Le MD Primary Care Provider + Reason for Visit * Reason Onset Date Comments Pre Op Call 03/31/2020 Encounter Details Date Type Department Care Team ([facility] Contact Info) Description 03/31/2020 Telephone [facility] [address] [place] [phone] Jamaal Stone, SAADIA Pre Op Call Social History Tobacco Use Types Packs/Day Years Used Date Smoking Tobacco: Never Smokeless Tobacco: Never Alcohol Use Standard Drinks/Week Comments No 0 (1 standard drink = 0.6 oz pur e alcohol) Comments No Sex and Gender Information Value Date Recorded Sex Assigned at Not on file Legal Sex Female 6:16 AM STRAW BOSS Gender Identity Not on file Sexual Orientation Not on file COVID-19 Exposure Response Date Recorded In the last month, have you been in contact with someone who was confirmed or suspected to have Coronavirus / COVID-19? Unable to assess 03/28/2020 8:46 AM CDT documented as of this encounter Plan of Treatment Upcoming Encounters Date Type Department Care Team ([facility] Contact Info) Description 02/03/2025 3:30 PM CDT Office Visit [facility] - [facility]ermatology [address] [place] [phone] Sarah Espinoza MD [address] [place] [address] [address] [place] [phone] 03/08/2025 10:00 AM CDT Office Visit [facility] - Pulmonology [address] [place] [address], [place] [phone] Viet Lorenz MD [address] [place] [address] [address] DIV OF PULMONARY/[place] [phone] 04/19/2025 1:30 PM CDT Office Visit [facility] - Neurology [address] [place] [address] [place] [phone] Shannan Martinez MD [address] [place] [address] [address] [place] [phone] 04/21/2025 11:00 AM CDT Office Visit [facility] - Neurology [address] [place] [phone] Darin Ram MD [address] [place] [address] [address] [place] [phone] 05/13/2025 10:00 AM CDT Office Visit [facility] - GI [address] [place] [phone] Lolita Yang PA-C [address] [facility] [place] [phone] 09/15/2025 2:00 PM STRAW BOSS Office Visit [facility] - GI [address] [place] [phone] Matt Srinivasan III, MD [address] [place] [address] [address] [address] 09/28/2025 10:00 AM STRAW BOSS Office Visit [facility] - [address], [place] [address] Comirlande-Lacie Garcia, COMPOSING ROOM SUPERVISOR-GRANT OFFICER [address] [place] [address] documented as of this encounter Goals Goal Patient Goal Type Associated Problems Recent Progress Patient-Stated? Author Safety General On track( 025 10:11 AM STRAW BOSS) Maureen Romero, RN Note: Expected end date: Ongoing Interventions: Your nurse will assess your risk for falls/injury each visit Use appropriate and safe transfer methods Medication Management General On track( 025 3:14 PM CDT) Maureen Romero, RN Note: Expected end date: Ongoing Interventions: Take all medications as prescribed Let your doctor know right away about any changes in your medications documented as of this encounter Visit Diagnoses Not on filedocumented in this encounter Additional Health Concerns Infection Onset Date Last Indicated Resolved Time ESBL GNR 01/26/2020 01/26/2020 MDRO 01/26/2020 01/26/2020 documented as of this encounter Care Teams Engineering Executive Relationship Specialty Start Date End Date Lalo Le MD [address] [address] PCP - General 12/22/17 documented as of this encounter
--- OUTSIDE RECORDS SUMMARY | 2025-01-14 09:57 | XMS_ITS | Clinical Summary ---
Author Organization [facility] Address [address] [place] [address] Care Team Providers Care Forklift Truck Operator Name Role Phone Lalo Le MD Primary Care Provider + Source Comments [facility],non-owned Affiliates and Associated Physician Practices is amultiple site organization consisting of ambulatory clinics and hospital sitesin [place], [place], [place] and [place]. This disclosure is being madepursuant to the Care Everywhere program and may not contain all information available regarding this patient. Last updated 18.[facility] Allergies Active Allergy Reactions Criticality Noted Date Comments Adhesive Sensitivity Urticaria,Skin Reactions Medium Paper tape ok Ammonia Shortness of Breath High 12/17/2023 Latex Rash Medium 09/09/2016 Hydroxychloroquine Vision Changes Low 10/25/2014 Blindness, Elevated liver enzymes Sulfa Drugs Urticaria,Shortness of Breath High 12/25/2017 Medications * Be aware that medications may not be up to date on this document. Alwaysverify current medications with the patient. ALPRAZolam (XANAX) 1 MG tablet Take 0.5 (one-half) tablet by mouth at bedtime Active aspirin (ASPIRIN) 81 MG tablet Take 1 (one) tablet by mouth once daily Active OXYGENIndication s:Type 2 diabetes mellitus with complication, without long-term current use of insulin (HCC) Use at bedtime A ctive CPAPIndications: Type 2 diabetes mellitus with complication, without long-term current use of insulin (HCC) Use as directed Active nitroGLYCERIN (NITROSTAT) 0.4 MG tablet Dissolve 1 (one) tablet under the tongue as needed 04/21/20 19 Active azaTHIOprine (IMURAN) 50 MG tablet Take 1 (one) tablet by mouth 2 times daily 06/08/20 21 Active FEROSUL 325 (65 Fe) MG tablet TAKE 1 TABLET BY MOUTH DAILY WITH VITAMIN-C 500MG 30 tablet 5 08/06/20 21 Active Additional Information Patient taking differently: 325 mg Oral EVERY OTHER DAY PRN, Reported on 08/12/2022 benzonatate (Tessalon) 200 MG capsule Take 1 (one) capsule by mouth once daily as needed 30 capsule 2 09/03/20 22 Active atorvastatin (Lipitor) 20 MG tablet Take 1 (one) tablet by mouth once daily 08/05/20 22 Active loratadine (Claritin) 10 MG tabletIndication s:Allergic rhinitis due to animal hair and dander,Chronic cough Take 1 (one) tablet by mouth once daily 90 tablet 3 02/14/20 23 Active Ascorbic Acid (VITAMIN C PO) Take 1 tablet by mouth once daily Active Multiple Vitamins-Mineral s (ZINC PO) Take 1 tablet by mouth once daily Active esomeprazole (NexIUM) 40 MG capsuleIndicatio ns:Gastroesophag eal reflux disease without esophagitis Take 1 (one) capsule by mouth daily before breakfast 90 capsule 3 08/25/20 23 Active alendronate (Fosamax) 70 MG tablet Take 1 (one) tablet by mouth every 7 days before meal 02/12/20 24 Active OneTouch Verio test strip Use 1 (one) strip once 12/14/19 24 Active ONETOUCH DELICA PLUS 30G FINE LANCETS USE TO TEST GLUCOSE ONCE A DAY 11/04/19 24 Active calcium-vitamin D (Caltrate Plus D) 600-200 MG-UNIT tablet Take 1 (one) tablet by mouth 2 times daily Active propranolol ER 24hr (Inderal LA) 120 MG capsuleIndicatio ns:Tremor Take 1 (one) capsule by mouth once for 1 dose Reasons: Involuntary Quivering 90 capsule 3 04/06/20 24 Active Additional Information Patient taking differently:120 mg OralDAILY, Indications: Tremor, Reported on 09/22/2024 primidone (Mysoline) 50 MG tabletIndication s:Essential Tremor Take 2 (two) tablets by mouth at bedtime for 90 days Reasons: Fine to Coarse Slow Tremor Affecting Head, Hands & Voice 180 tablet 3 04/06/20 24 Active fluticasone propionate (Flonase) 50 MCG/ACT nasal spray Odon 2 (two) sprays into each nostril once daily 48 g 3 08/24/20 24 Active budesonide-formo terol (Symbicort) 160-4.5 MCG/ACT inhalerIndicatio ns:Allergic rhinitis due to animal hair and dander,Mild intermittent reactive airway disease with acute exacerbation (HCC) Inhale 2 (two) puffs by mouth 2 times daily 10.2 g 11 08/24/20 24 Active Additional Information Patient not taking.Reported on 11/05/2024 Zinc Gluconate 50 MG Take 50 mg by mouth once daily Active furosemide (Lasix) 20 MG tablet TAKE 2 TABLETS BY MOUTH DAILY 180 tablet 3 10/19/19 25 Active metFORMIN ER 24hr (Glucophage XR) 500 MG tabletIndication s:Type 2 diabetes mellitus with other specified complication, unspecified whether halfway insulin use (HCC) Take 1 (one) tablet by mouth 2 times daily 180 tablet 3 12/30/19 25 Active tirzepatide (Mounjaro) 10 MG/0.5ML injectionIndicat ions:Type 2 diabetes mellitus with other specified complication, unspecified whether terminal superintendent insulin use ([facility]) Inject 10 (ten) mg subcutaneously every 7 days (once a week) 2 mL 5 01/07/20 25 Active Semaglutide (2 MG/DOSE) 8 MG/3ML Subcutaneous Solution Pen-injector (Ozempic)Indicat ions:Type 2 diabetes mellitus with other specified complication, unspecified whether halfway insulin use ([facility]) Inject 2 (two) mg subcutaneously every 7 days 3 mL 4 11/08/19 25 025 Discontin ued(Clini danielle Decision) tirzepatide (Mounjaro) 10 MG/0.5ML injectionIndicat ions:Type 2 diabetes mellitus with other specified complication, unspecified whether halfway insulin use ([facility]) Inject 10 (ten) mg subcutaneously every 7 days 2 mL 2 11/08/19 25 025 Discontin ued(Reord er) Active Problems Problem Noted Date Diagnosed Date Abnormal stress test 07/01/2023 07/03/2023 Class 2 severe obesity with serious comorbidity and body mass index (BMI) of 37.0 to 37.9 in adult 05/08/2023 Metabolic syndrome 05/08/2023 Left flank pain 11/08/2021 07/03/2023 Stress incontinence 11/08/2021 07/03/2023 Small intestinal bacterial overgrowth 04/05/2021 Actinic keratosis 08/01/2020 Inflamed seborrheic keratosis 08/01/2020 Metabolic dysfunction-associated steatohepatitis (MASH) 02/23/2020 Overview (12/02/2024): 04/25/15 liver biopsy: 5-10% steatosis, minimal inflammation, minimal MTX effect (stopped at least a year before biopsy), no fibrosis 03/17/23 Fibroscan CAP 400, LSM 9.8 kPa 05/25/23 liver biopsy: MELTON, stage 1b 11/30/24 Fibroscan CAP 288, LSM 5.0 kPa Chronic abdominal pain 02/10/2020 Tubular adenoma of colon 02/10/2020 Age-related osteoporosis wit hout current pathological fracture 04/13/2019 Numbness of right jaw 03/09/2019 IBS (irritable bowel syndrome) 02/18/2019 Elevated liver enzymes 02/18/2019 MARTE (dyspnea on exertion) 02/05/2019 JOSEPH on CPAP 11/24/2018 Left arm pain 11/03/2018 Type 2 diabetes mellitus with other specified co mplication 04/02/2018 Status post placement of implantable loop record er 03/21/2018 Overview (04/02/2018): Overview: Medtronic Reveal Loop Recorder. Dx; Syncope. DOI 02/04/2017. Carelink remote monitoring. 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 Overview (11/24/2018): Overview: Vertebral artery disease Edema of lower extremity 05/15/2016 Overview (06/20/2021): Edema of both legs Hypertension associated with diabetes 02/22/2016 Overview (11/24/2018): Overview: Essential hypertension Abnormal electrocardiography 02/22/2016 Overview (06/20/2021): Abnormal EKG Atypical chest pain 02/22/2016 Overview (06/20/2021): Atypical chest pain Palpitations 02/22/2016 Overview (06/20/2021): Palpitations Chest pressure 02/22/2016 07/03/2023 Overview (07/03/2023): Atypical chest pain Systemic lupus erythematosus 12/08/2010 Overview (04/03/2022): Overview: Diagnosed 1986 Description: Systemic Lupus Erythematosus Last Assessment & Plan: Currently without exam features concerning for active inflammation of joints and improved skin rash with decreased azathioprine dosing. Side effects from medication also improved with decreased dosing. Currently, complaints of pain and fatigue appear more consistent with fibromyalgia. - further decrease to azathioprine 50 mg BID - encouraged patient to receive COVID-19 booster dose 6 months after last dose (due: 11/2021) Fibromyalgia 12/08/2010 Overview (05/10/2021): Description: Fibromyalgia Trochanteric bursitis 12/08/2010 Overview (06/20/2021): Description: Trochanteric Bursitis Resolved Problems Problem Noted Date Diagnosed Date Resolved Date Urinary tract infection without hematuria 08/01/2020 09/25/2020 Diarrhea 02/10/2020 02/21/2022 Oral dryness 11/24/2018 02/10/2020 Osteoporosis with current pa thological fracture 12/26/2017 04/13/2019 Obesity with body mass index 30 or greater 02/22/2016 04/13/2019 Overview (12/30/2017): Overview: Obesity (BMI 35.0-39.9 without comorbidity) Encounters Date Type Department Care Team Description 01/06/2025 3:30 PM CDT Office Visit [facility] - [address], [place] [phone] Matt Srinivasan III, MD Class 2 severe obesity with serious comorbidity and body mass index (BMI) of 37.0 to 37.9 in adult, unspecified obesity type (HCC) (Primary Dx); Type 2 diabetes mellitus with other specified complication, unspecified whether halfway insulin use (HCC); Metabolic syndrome; Metabolic dysfunction-associa shayy steatotic liver disease (MASLD) 01/06/2025 Travel 12/29/2024 Orders Only [facility] - Internal Med [address] [place] [address], [place] [address] Matt Srinivasan III, MD Type 2 diabetes mellitus with other specified complication, unspecified whether terminal superintendent insulin use (HCC) 12/27/2024 Telephone [facility] - [address], [place] [address] Matt Srinivasan III, MD Medication Issue 12/27/2024 Refill [facility] - GI [address] [place] [phone] Matt Srinivasan III, MD MEDICATION REFILL 11/30/2024 10:00 AM CDT Procedure visit [facility] - GI [address] [place] [phone] Lolita Yang PA-C NAFLD (nonalcoholic fatty liver disease) 11/30/2024 Travel 11/23/2024 10:00 AM CDT - 11/23/2024 11:59 PM CDT Hospital Encounter [facility] [address] [place] [address] Lalo Le MD Discharge Disposition: Home or Self Care 11/18/2024 Travel 11/08/2024 Orders Only [facility] - Internal Med [address] [place] [phone] Lolita Yang PA-C 11/05/2024 11:21 AM ANESTHESIA RESIDENT - 11/05/2024 11:59 PM ANESTHESIA RESIDENT Hospital Encounter [facility] [address] [place] [phone] Lolita Yang PA-C Discharge Disposition: Home or Self Care 11/05/2024 10:00 AM ANESTHESIA RESIDENT Office Visit [facility] - GI [address] [place] [phone] Lolita Yang PA-C Type 2 diabetes mellitus with other specified complication, unspecified whether terminal superintendent insulin use (Primary Dx); Metabolic syndrome; Class 2 severe obesity with serious comorbidity and body mass index (BMI) of 37.0 to 37.9 in adult, unspecified obesity type; JOSEPH on CPAP; Metabolic dysfunction-associa shayy steatotic liver disease (MASLD) 11/05/2024 Travel 10/19/2024 Refill [facility] - Pulmonology [address] [place] [phone] Viet Lorenz MD Refill Request from Last 3 Months Immunizations Immunization Administration Dates Next Due INFLUENZA VACCINE, TRIV. (AF LURIA, FLUZONE TRIVALENT; 6MO+) (IIV3) 06/26/2015 CovRNDOMN primary monoval ent 12+ yr 0.3mL Purple cap 05/04/2021,05/03/2021,11/21/2020,2020,10/29/2020,10/24/2020 FLU VACCINE TRI IIV3 SPLIT I M (FLUVIRIN) 06/05/2015,09/11/2013 INFLUENZA VACCINE 07/06/2019 INFLUENZA VACCINE, ADJUVANTE D, QUADR. (FLUAD QUADRIVALENT; 65Y+) (AIIV4) 07/22/2022 INFLUENZA VACCINE, HIGH-DOSE , QUADR. (FLUZONE HIGH-DOSE QUADRIVALENT; 65Y+), 0.7 ML (HD-IIV4) 06/21/2020,07/06/2019 INFLUENZA VACCINE, HIGH-DOSE , TRIV. (FLUZONE HIGH-DOSE TRIVALENT; 65Y+) (HD-IIV3) 07/06/2019 INFLUENZA VACCINE, QUADR. (F LUZONE; FLULAVAL; FLUARIX; AFLURIA QUADRIVALENT; 6MO+), 0.5 ML (IIV4) 06/30/2018 Influenza Intradermal 08/18/2017,06/10/2016 PNEUMOCOCCAL PPSV23 04/27/2015,11/07/2009 Pneumococcal Pcv13 Conj 04/25/2020 Family History Medical History Relation Name Comments Arthritis - Rheumatoid Brother Other Brother guillain barre 13 CAD (Coronary Artery Disease) Father 82 Hyperlipidemia Father 82 Hypertension Father 82 Anxiety Disorder Mother 27 Hepatitis Mother 27 liver failure Lupus Mother 27 Relation Name Status Comments Brother Alive Father 82 Mother 27 Social History Tobacco Use Types Packs/Day Years Used Date Smoking Tobacco: Never Smokeless Tobacco: Never Tobacco Cessation:Counseling Given: Not Answered Alcohol Use Standard Drinks/Week Comments No 0 (1 standard drink = 0.6 oz pur e alcohol) Comments No Sex and Gender Information Value Date Recorded Sex Assigned at Not on file Legal Sex Female 6:16 AM ANESTHESIA RESIDENT Gender Identity Not on file Sexual Orientation Not on file Last Filed Vital Signs Vital Sign Reading Time Taken Comments Blood Pressure 134/83 01/06/2025 3:13 PM CDT Pulse 80 01/06/2025 3:13 PM CDT Temperature 36.6 C (97.8 F) 01/06/2025 3:13 PM CDT Respiratory Rate 17 08/24/2024 11:00 AM ANESTHESIA RESIDENT Oxygen Saturation 100% 01/06/2025 3:13 PM CDT Inhaled Oxygen Concentration - - Weight 83.5 kg (184 lb) 01/06/2025 3:13 PM CDT Height 157.5 cm (5' 2 ) 01/06/2025 3:13 PM CDT Body Mass Index 33.65 01/06/2025 3:13 PM CDT Plan of Treatment Upcoming Encounters Date Type Department Care Team (Late st Contact Info) Description 02/03/2025 3:30 PM CDT Office Visit [facility] - Dermatology [address] [place] [address] [place] [phone] Sarah Espinoza MD [address] [place] [address] [address] [place] [phone] 03/08/2025 10:00 AM CDT Office Visit [facility] - Pulmonology [address] [place] [address] [place] [phone] Viet Lorenz MD [address] [place] [address] 2L DIV OF PULMONARY/[place] [phone] 04/19/2025 1:30 PM CDT [facility] [address] [place] [phone] Shannan Martinez MD [address] [place] [address] [address] [place] [phone] 04/21/2025 11:00 AM CDT Office Visit [facility] - Neurology [address] [place] [phone] Darin Ram MD [address] [place] [address] [address] [place] [phone] 05/13/2025 10:00 AM CDT Office Visit [facility] - GI [address] [place] [phone] Lolita Yang PA-C [address] [facility] DEPT OF [place] [phone] 09/15/2025 2:00 PM ANESTHESIA RESIDENT Office Visit [facility] - GI [address] [place] [phone] Matt Srinivasan III, MD [address] [place] [address] [address] [phone] 09/28/2025 10:00 AM ANESTHESIA RESIDENT Office Visit [facility] - [address] [phone] Lacie Gilman, INSTRUCTOR [employer]ER[employer]MANAGER [employer]RE[employer]URY [address] [place] [phone] Health Maintenance Due Date Last Done Comments COLOGUARD (AGES 45-75) - COLON CA SCREENING 1953 CT COLONOGRAPHY - COLON CA SCREENING 1955 FIT - COLON CA SCREENING 1955 FLEX SIG - COLON CA SCREENING 1955 DTAP/TDAP/TD VACCINES (1 - Tdap) 1972 ZOSTER VACCINE (1 of 2) 1972 Respiratory Syncytial Virus (RSV) Vaccine Pt: or over 60 yrs (1 - Risk 60-74 years 1-dose series) 2013 DIABETES-FOOT EXAM WITH MONOFILAMENT 08/03/2020 08/03/2019, 04/13/2019, 10/20/2018, Additional history exists DIABETES RETINOPATHY SCREENING 01/06/2022 01/07/2020 (Done Outside Per Report) COVID-19 VACCINE ( season) 2024 07/22/2022, 12/05/2021, 05/04/2021, Additional history exists DIABETES-SERUM CREATININE 09/03/20242022, 08/29/2021, 09/29/2020, Additional history exists DEPRESSION SCREENING 09/08/2024 DIABETES - URINE PROTEIN SCREENING 09/08/2024 09/03/2023, 04/14/2019, 11/03/2018, Additional history exists MEDICARE AWV CALENDAR YEAR 2024 PNEUMOCOCCAL VACCINE 50+ (4 of 4 - PCV20 or PCV21) 04/25/2025 04/25/2020, 04/27/2015, 11/07/2009 DIABETES-HGB A1C 05/05/2025 11/05/2024, , 09/03/2023, Additional history exists INFLUENZA VACCINE (Season Ended) 2025 07/22/2022, 06/21/2020, 07/06/2019, Additional history exists MAMMOGRAM 11/23/2026 11/23/2024, 11/06, 11/21/2023, Additional history exists COLON MONITORING 01/21/2033 01/21/2023, , 01/26/2020, Additional history exists COLONOSCOPY - COLON CA SCREENING 01/21/2033 01/21/2023, 01/21/2023, 01/26/2020, Additional history exists Colorectal Cancer Screening 01/21/2033 HEPATITIS C SCREENING Completed 04/14/2019, 014 BONE DENSITY TESTING Completed 01/05/2024, 02/02/2019, 01/20/2018, Additional history exists HEPATITIS B VACCINE Aged Out No longe r eligible based on patient's age to complete this topic HIB VACCINE Aged Out No longer eligi ble based on patient's age to complete this topic HPV VACCINE Aged Out No longer eligi ble based on patient's age to complete this topic MENINGOCOCCAL (Group B) VACCINE SHARED DECISION-MAKING Aged Out No longer eligible based on patient's age to complete this topic MENINGOCOCCAL GROUPS A/C/Y/W VACCINE Aged Out No longer eligible based on patient's age to complete this topic Goals Goal Patient Goal Type Associated Problems Recent Progress Patient-Stated? Author Safety General On track( 025 10:11 AM ANESTHESIA RESIDENT) Maureen Romero, RN Note: Expected end date: Ongoing Interventions: Your nurse will assess your risk for falls/injury each visit Use appropriate and safe transfer methods Medication Management General On track( 025 3:14 PM CDT) Maureen Romero, RN Note: Expected end date: Ongoing Interventions: Take all medications as prescribed Let your doctor know right away about any changes in your medications Medical Devices Implanted Type Area Circuit Design Engineer Device Identifier Shelf Expiration Date Model / Serial / Lot Reveal Linq Loop Recorder Description:[employer] REVEAL 2018 Procedures Procedure Name Priority Date/Time Associated Diagnosis Comments LA LIVER ELASTOGRAPHY Routine 11/30/2024 10:03 AM CDT Metabolic dysfunction-associat ed steatotic liver disease (MASLD) MAMMO BILAT SCREENING W BENJIE Routine 11/23/2024 10:21 AM CDT Encounter for screening mammogram for malignant neoplasm of breast HEMOGLOBIN A1C Routine 11/05/2024 11:49 AM ANESTHESIA RESIDENT Type 2 diabetes mellitus with other specified complication, unspecified whether terminal superintendent insulin use DEXA BONE DENSITY AXIAL SKELETON Routine 01/05/2024 10:22 AM CDT Osteoporosis, unspecified osteoporosis type, unspecified pathological fracture presence MICROALB/CREAT RATIO URINE RANDOM PANEL Routine 09/03/2023 3:20 PM ANESTHESIA RESIDENT Type 2 diabetes mellitus with other specified complication, unspecified whether halfway insulin use COMPREHENSIVE METABOLIC PANEL Routine 09/03/2023 3:18 PM ANESTHESIA RESIDENT Type 2 diabetes mellitus with other specified complication, unspecified whether terminal superintendent insulin use Hypertension associated with diabetes ENDOSCOPY, COLON, SCREENING Routine 01/21/2023 1:34 PM CDT HEPATITIS SCREEN ACUTE 04/14/2019 10:10 AM CDT from Last 3 Months or Most Recently Relevant to Health Maintenance Results * LA LIVER ELASTOGRAPHY (11/30/2024 10:03 AM CDT) Narrative Arnol Sawyer MD - 11/30/2024 10:03 AM CDT Arnol Sawyer MD 12/02/2024 2:58 PM Diagnosis: MCKENZIE RN verified patient NPO for prior 3 hours. Procedure explained. Date of Exam: 11/30/2024 Liver Stiffness: (LSM, kPa) median: 5.0 IQR/Median% (ideally < 30%): 8% CAP (controlled attenuation parameter): 288 Technical Difficulty: None Ordering Provider: Lolita Yang PA-C Phone Fax Fibroscan interpretation: I have personally reviewed the Fibroscan report and associated tracings. The calculated Liver Stiffness Measurement (LSM, kPa) indicates that: The probability of advanced liver fibrosis is: low. The loss of ultrasound signal, (controlled attenuation parameter, CAP [dB/m]), indicates that the probability of hepatic steatosis is: high. Arnol Friedman MD The following criteria are used to indicate the probability of advanced (stage 3-4) fibrosis: < 7.0 kPa: low 7.0-8.9 kPa: low to moderate 9.0-14.9 kPa: moderate 15-20 kPa: high > 20 kPa: very high Liver stiffness > 12 kPa is associated with an increased risk of cirrhosis-related complications over the next 3-5 years (Bochelaier, 2022). Liver stiffness > 20 kPa is also associated with a high probability of complications of portal hypertension including varices and ascites. Liver stiffness > 50 kPa is associated with a high risk of variceal bleeding. These interpretations are based on the following published data: Elida J, Hagstr m H, Ekstmonicat M, Manuela C, Bonacci M, Cure S, Ampuero J, Nasr P, Tallab L, Canivet CM, Kechagias S, S nchez Y, Dincuff E, West A, Taya M, Anusha J, Frank A and Jose-Zurdo M. Non-invasive tests accurately stratify patients with NAFLD based on their risk of liver-related events. J Hepatol (2021) 76: 2842-3677. Neville BRANDON, Andre M, Lolita Negro, et al. Accuracy of FibroScan controlled attenuation parameter and liver stiffness measurement in assessing steatosis and fibrosis in patients with nonalcoholic fatty liver disease. Gastroenterology 2019;156:9811-6892. Carlos MS, Tigre R, Van Ramiro ML, et al. Vibration-controlled transient elastography to assess fibrosis and steatosis in patients with nonalcoholic fatty liver disease. Clin Gastroenterol Hepatol 2019;17:156-163. Note that scores have been developed that incorporate the Fibroscan liver stiffness measurement from large cohorts of patients with liver biopsies to further refine the ability of Fibroscan to identify patients with MASH and advanced fibrosis. These include the FAST (Fibroscan-AST) score (Pierre, 202) and the Agile3+ and Agile4 scores (Marii, 202; Ana, 202). Pierre TA, Brett Rubio ML, Mariely M, Dashawn A, et al. Validation of the accuracy of the FAST score for detecting patients with at-risk nonalcoholic steatohepatitis (MELTON) in a [place] cohort and comparison to other non-invasive algorithms. PLoS ONE (2021) 17: [id number]. Marii AJ, Thiago J, Aury ZM, et al. Enhanced diagnosis of advanced fibrosis and cirrhosis in individuals with NAFLD using FibroScan-based Agile scores. J Hepatol (2022) 78: 247-259. Ana et al. Vibration-controlled transient elastography scores to predict liver-related events in steatotic liver disease. KELLY (2023) 331: 7334-5038 Fibroscan LSM can also be used with laboratory parameters without formulas to assess prognosis. According to the Baveno-VII criteria (Dalal, 2021), Fibroscan LSM <=15 kPa plus a platelet count of >=[id number]/L rules out clinically significant portal hypertension (sensitivity and negative predictive value >90%) in patients with compensated advanced chronic liver disease. Dalal R, Julienne J, Boy-Chela G, Rebritany T, Terrie C on behalf of the Baveno VII Faculty. Baveno VII--Renewing consensus in portal hypertension. J Hepatol (2021) 76: 959-974 Assessing the likelihood of advanced fibrosis in patients with intermediate liver stiffness measurement (LSM) by Fibroscan (e.g., 8-15 kPa) can be improved by also calculating the FIB-4 score (Joyce et al. Hepatology Communications 2019;3:1051-0060) or NAFLD Fibrosis score (Ruiz et al. Clinical Gastroenterology and Hepatology 2019;17:8415-7664 using routine clinical data. Notes: 1. Fibroscan cannot reliably identify earlier stages of fibrosis (ie distinguish F0 from F1 and F2) and thus a histologic stage cannot be predicted from the Fibroscan reading. 2. Liver stiffness can be increased by factors other than fibrosis including passive congestion, infiltrative processes, active alcoholism, recent moderate alcohol consumption in the 2 weeks before the exam, biliary obstruction and marked inflammation. The interpretation of the Fibroscan result provided above may not have taken such clinical factors into account. 3. Identifying steatosis by an elevated CAP score (> 250 db/m) is useful for establishing a diagnosis of steatotic liver disease. However the severity of steatosis does not correlate with liver related outcomes. Disease etiology also influences Fibroscan cutoff values for fibrosis stages and the following cutoffs have been proposed (Maryann et al, Clin Gastro Hepatol 2015; 13:27-36): Cutoffs for Stage 3 and Stage 4 fibrosis respectively: Hepatitis B: >9 and >11.7 kPa Hepatitis C: >9.5 and >12.5 kPa HCV-HIV: >11 and >14 kPa Cholestatic liver diseases: >10 and >17.9 kPa MASLD/MASH: >10 and >14 kPa CAP estimates of steatosis: normal <200 dB/m mild 200 to 250 dB/m moderate 250-290 dB/m substantial > 290 dB/m (Note that Fibroscan is not a quantitative measure of liver fat.) These criteria are estimates and may change as additional supporting data becomes available. (This additional interpretive data was last updated 09/10/24.) [email or web address] us Lolita Yang PA-C PROCEDURE/MINOR SURGICAL OR DERABLES Final Result * Mammo Bilat Screening W Benjie (11/23/2024 10:21 AM CDT) Anatomical Region Laterality Modality Breast Bilateral Mammography 11/23/2024 10:3 6 AM CDT Impressions 11/23/2024 11:02 AM CDT IMPRESSION: Benign mammogram, without evidence of malignancy. RECOMMENDATION: Screening mammography in one year, pending no interval breast concerns. Patient will receive the examination results by lay letter. OVERALL ASSESSMENT: BI-RADS CATEGORY 2: BENIGN. Report dictated by Hesham Ramírez MD, PhD (residential lawn specialist). [facility], assisted in the evaluation and interpretation of the study. IShannon MD have personally reviewed and interpreted this examination/study. > Interpreting Provider: Shannon Mckeon MD on 11/23/2024 11:02 AM Narrative 11/23/2024 11:02 AM CDT EXAMINATIONS: BILATERAL DIGITAL SCREENING MAMMOGRAM AND BILATERAL BREAST TOMOSYNTHESIS LOCATION: [facility] EXAM DATE: 11/23/2024 HISTORY: Screening. 67 year-old female with history of fibromyalgia with bilateral areas of lumpiness/burning pain. No reported family history of breast cancer. Surgical history of left-sided loop recorder . RISK ASSESSMENT CALCULATION: Patient completed a breast cancer risk assessment during her appointment 11/23/2024. Based upon the information she provided and her mammographic breast density, her lifetime risk of developing breast cancer is 7 % (Average Risk <15%; Intermediate / Moderate Risk 15-19; High Risk > 20%). Risk assessment based upon the Tyrer-Cuzick v8 model. COMPARISON: Compare with prior breast imaging studies back to 2011, with the most recent dated 11/21/2023. TECHNIQUE: Tomosynthesis (3D) and reconstructed synthetic 2-D images acquired and reviewed. A total of 5 images obtained. Transpara AI was utilized in the interpretation. BREAST PARENCHYMAL COMPOSITION: Category B: There are scattered areas of fibroglandular density. FINDINGS: There are no suspicious findings or evidence of malignancy on mammography. A device obscures the inner central left breast. There is no significant change from the prior. us Lalo Le MD MAMMO ORDERABLES Final R esult * (ABNORMAL) HEMOGLOBIN A1C (11/05/2024 11:49 AM ANESTHESIA RESIDENT) Hemoglobin A1c 6.3(H) <=5.6 % 11/05/2024 2:01 PM [facility] Estimated Average Glucose 134 mg/dL 11/05/2024 2:01 PM [facility] Comment: HbA1c Interpretation: Normal : < 5.7% Pre-diabetes: 5.7-6.4% Diabetes: Equal to or greater than 6.5% Test results diagnostic of diabetes should be repeated for confirmation. Treatment target values recommended by ADA and other clinical organizations should be used to evaluate metabolic control in patients. Reference: [place] [employer], Standards of Care in Diabetes -2020 In patients 70 years and older consider HbA1c target range of 7.0-7.5% (Reference: Vipul Rinaldi et al. JAMDA. 2012) The Sebia assay for the measurement of HbA1c is a National Glycohemoglobin Standardization Program (NGSP) certified method. Blood BLOOD SPECIMEN / Unknown Lab Venipuncture / Unknown 11/05/2024 11:49 AM ANESTHESIA RESIDENT 11/05/2024 12:15 PM ANESTHESIA RESIDENT Lolita Yang PA-C LAB - CHEMISTRY ORDERABLES Final Result Performing Organization Address City/State/[facility] Co de Phone Number [address] [address], [facility] [phone] * BONE DENSITY AXIAL SKELETON(1OR MORE SITES)[id number] (01/05/2024 10:22 AM CDT) Anatomical Region Laterality Modality Other 01/05/2024 10:3 1 AM CDT Narrative 01/05/2024 10:42 AM CDT PROCEDURE: DEXA BONE DENSITY AXIAL SKELETON DATE/TIME OF EXAM: 01/05/2024 10:22 AM CLINICAL INFORMATION: None relevant/not provided if blank. Indication: M81.0: Osteoporosis, unspecified osteoporosis type, unspecified pathological fracture presence COMPARISON: None. LUMBAR SPINE (L1-L4): Bone mineral density (g/cm2): 0.832 Current T-score: -2.0 LEFT FEMORAL NECK: Bone mineral density (g/cm2): 0.731 Current T-score: -1.1 BONE DENSITY ASSESSMENT: WHO Category: Osteopenia. FRAX CALCULATION The 10-year risk for a major osteoporotic fracture, %: 13 The 10-year risk for a hip fracture, %: 1.6 Please see the PACS images for additional details. World Health Organization definitions of standard deviations relative to the mean T-score: Normal bone density = -1.0 and above Osteopenia = between -1.0 and -2.5 Osteoporosis = -2.5 and below > Dictated by Chase Hirsch MD (Records Management Assistant) 01/05/2024 10:31 AM Meme Barros DO have personally reviewed and interpreted this examination/study. > Interpreting Provider: Meme Jones DO on 01/05/2024 10:42 AM Procedure Note Meme Jones DO - 01/05/2024 PROCEDURE: DEXA BONE DENSITY AXIAL SKELETON DATE/TIME OF EXAM: 01/05/2024 10:22 AM CLINICAL INFORMATION: None relevant/not provided if blank. Indication: M81.0: Osteoporosis, unspecified osteoporosis type,unspecified pathological fracture presence COMPARISON: None. LUMBAR SPINE (L1-L4): Bone mineral density (g/cm2): 0.832 Current T-score: -2.0 LEFT FEMORAL NECK: Bone mineral density (g/cm2): 0.731 Current T-score: -1.1 BONE DENSITY ASSESSMENT: WHO Category: Osteopenia. FRAX CALCULATION The 10-year risk for a major osteoporotic fracture, %: 13 The 10-year risk for a hip fracture, %: 1.6 Please see the PACS images for additional details. World Health Organization definitions of standard deviations relative to the mean T-score: Normal bone density = -1.0 and above Osteopenia = between -1.0 and -2.5 Osteoporosis = -2.5 and below > Dictated by Chase Hirsch MD (Records Management Assistant) 01/05/2024 10:31AM Meme Barros DO have personally reviewed and interpreted this examination/study. > Interpreting Provider: Meme Jones DO on 01/05/2024 10:42 AM Kalen Mishra MD DEXA ORDERABLES Final Result * MICROALB/CREAT RATIO URINE RANDOM PANEL (09/03/2023 3:20 PM ANESTHESIA RESIDENT) Albumin Random Urine 7.0 Not Established ug/mL 09/03/2023 4:19 PM [facility] Creatinine Urine 84.60 Not Established mg/dL 09/03/2023 4:19 PM [facility] Urine Albumin/Creati nine Ratio 8 <30 mg/g 09/03/2023 4:19 PM [facility] Urine URINE SPECIMEN OBTAINED BY CLEAN CATCH PROCEDURE / Unknown Collection / Unknown 09/03/2023 3:20 PM ANESTHESIA RESIDENT 09/03/2023 3:32 PM ANESTHESIA RESIDENT Alyssa Hernandes APRN-MANAGER TREASURY LAB - URINE CHEMISTRY ORD ERABLES Final Result [facility] [address] [place] [id number], [facility] [phone] * (ABNORMAL) COMPREHENSIVE METABOLIC PANEL (09/03/2023 3:18 PM ANESTHESIA RESIDENT) BUN 15 7 - 26 mg/dL 09/03/2023 4:12 PM [facility] Creatinine 0.77 0.56 - 0.96 mg/dL 09/03/2023 4:12 PM [facility] Sodium 145 136 - 145 mmol/L 09/03/2023 4:12 PM [facility] Potassium 3.4(L) 3.5 - 4.5 mmol/L 09/03/2023 4:12 PM [facility] Chloride 104 98 - 107 mmol/L 09/03/2023 4:12 PM [facility] CO2 30(H) 22 - 29 mmol/L 09/03/2023 4:12 PM [facility] Glucose 147(H) 70 - 115 mg/dL 09/03/2023 4:12 PM [facility] Calcium 9.0 8.4 - 10.2 mg/dL 09/03/2023 4:12 PM [facility] Protein Total 7.1 6.0 - 8.3 g/dL 09/03/2023 4:12 PM [facility] Albumin 3.8 3.4 - 5.0 g/dL 09/03/2023 4:12 PM [facility] Bilirubin Total 0.4 0.2 - 1.2 mg/dL 09/03/2023 4:12 PM [facility] Alkaline Phosphatase 67 40 - 150 U/L 09/03/2023 4:12 PM [facility] ALT 27 5 - 55 U/L 09/03/2023 4:12 PM [facility] AST 30 5 - 34 U/L 09/03/2023 4:12 PM [facility] Anion Gap 11 6 - 16 09/03/2023 4:12 PM [facility] BUN/Creatinine Ratio 19 7 - 23 09/03/2023 4:12 PM [facility] Osmolality Calculated 304(H) 275 - 295 mOsm/kg 09/03/2023 4:12 PM [facility] Albumin/Globulin Ratio 1.2 1.1 - 2.3 09/03/2023 4:12 PM [facility] eGFR by CKD-EPI 83(L) >=90 mL/min/1.7 3 m2 09/03/2023 4:12 PM [facility] Blood BLOOD SPECIMEN / Unknown Lab Venipuncture / Unknown 09/03/2023 3:18 PM ANESTHESIA RESIDENT 09/03/2023 3:44 PM ANESTHESIA RESIDENT Alyssa Hernandes INSTRUCTOR KINDERGARTEN-MANAGER TREASURY LAB - CHEMISTRY ORDERABLE S Final Result [facility] [address] [place] [address], [facility] [phone] * ENDOSCOPY, COLON, SCREENING (01/21/2023 1:34 PM CDT) Report Endoscopy POC Endoscopy Department Report _ Patient Name: Tricia Olsen Procedure Date: 01/21/2023 1:34 PM Date of : 1955 Classification: Outpatient Gender: Female Ethnicity: or Race: White _ Providers: Hawk Chambers MD Referring MD: Lalo Le MD; Mika Rivera MD Procedure: Upper GI endoscopy Indications: Suspected esophageal reflux Medications: See the Anesthesia note for documentation of the administered medications. Patient Profile: [id number] presents as direct access referral for EGD and Colonoscopy. Last EGD 2020 w/ unrevealing gastric mapping biopsies (previous focal IM), and Colonoscopy 2020 w/ few sub-cm TAs removed. Description of Procedure: After obtaining informed consent, the endoscope was passed under direct vision. Throughout the procedure, the patient's blood pressure, pulse, and oxygen saturations were monitored continuously. The Endoscope was introduced through the mouth, and advanced to the second part of duodenum. The upper GI endoscopy was accomplished without difficulty. The patient tolerated the procedure well. Findings: The esophagus was normal appearing. The esophagogastric landmarks were identified. The Z-line was regular. No esophagitis or Cabral's-like changes were present. A 2 cm long Hill grade IV hiatal hernia was present. The stomach demonstrated mild diffuse non-specific gastropathy in the gastric fundus and body. The stomach was otherwise normal appearing, including retroflexed views of the cardia and fundus. Random mapping biopsies were taken with a cold forceps for histology. A large diverticulum was noted along the medial wall of the second portion of the duodenum. The examined duodenum was otherwise normal appearing. Estimated Blood Loss: Estimated blood loss was minimal. Complications: No immediate complications. Impression: - Normal esophagus. - 2 cm long Hill grade IV hiatal hernia. - Mild diffuse non-specific gastropathy, otherwise normal stomach. Mapping biopsies obtained. - Large diverticulum along the medial wall of the second portion of the duodenum, otherwise normal examined duodenum. Moderate Sedation: Monitored Anesthesia Care. Recommendation: - Monitor for fevers, bleeding, pain. - Resume previous diet as tolerated. - Hold any anticoagulant medications ( blood thinners ) for 24 hours. Resume rest of home medications today. - Follow-up biopsy results. Further management accordingly, including need / timing of repeat Upper Endoscopy. - Follow-up with the referring providers has been discussed with the patient/caregiver. - The potential complications and concerning symptoms/findings, including but not limited to early or delayed fevers, infection, pain, bleeding, perforation, were discussed with the patient/caregiver. Emergency contact information was provided. Attending Participation: I was present and participated during the entire procedure, including non-sousa portions. Procedure Code(s): --- Professional --- 92399, Esophagogastroduod enoscopy, flexible, transoral; with biopsy, single or multiple Diagnosis Code(s): --- Professional --- K44.9, Diaphragmatic hernia without obstruction or gangrene CPT copyright 2019 [employer]. All rights reserved. The codes documented in this report are preliminary and upon roofer gypsum review may be revised to meet current compliance requirements. Hawk Chambers MD 01/21/2023 2:36:46 PM Note Initiated On: 01/21/2023 1:34 PM Number of Addenda: 0 [facility] [address] [place] [id number] [facility] 01/21/2023 1:34 PM CDT us Hawk Chambers MD GI PROCEDURE ORDERAB LES Edited Result - Final [facility] * HEPATITIS SCREEN ACUTE (04/14/2019 10:10 AM CDT) Hepatitis A Virus Antibody IgM NON-REACTI VE NON-REACT [facility] Hepatitis B Virus Surface Antigen NON-REACTI VE NON-REACT [facility] Hepatitis B Core Virus Antibody IgM NON-REACTI VE NON-REACT [facility] Hepatitis C Antibody NON-REACTI VE NON-REACT [facility] Signal to Cut-Off 0.02 <1.00 [facility] Comment: HCV antibody was non-reactive. There is no laboratory evidence of HCV infection. In most cases, no further action is required. However, if recent HCV exposure is suspected, a test for HCV RNA (test code 17494) is suggested. For additional information please refer to http://education.Ensygnia/faq/JDN08t2 (This link is being provided for informational/ educational purposes only.) REPORT COMMENT: NO DRAW FEE 3RD ORDER FASTING:NO Test Performed at: [facility] [address] [place] [address] RENATO BATES DO,MPH 04/14/2019 10:1 0 AM CDT 04/14/2019 10:10 AM CDT us Lalo Le MD LAB - CHEMISTRY ORDERABL ES Final Result [facility] [address] [place] [address] from Last 3 Months or Most Recently Relevant to Health Maintenance Additional Health Concerns Infection Onset Date Last Indicated ESBL GNR 01/26/2020 01/26/2020 MDRO 01/26/2020 01/26/2020 Insurance [employer] MEDICARE ADV [employer] Care Teams Forklift Truck Operator Relationship Specialty Start Date End Date Lalo Le MD [address] [place] [id number] PCP - General 12/22/17
--- OUTSIDE RECORDS SUMMARY | 2025-01-14 09:57 | XMS_ITS | Referral Summary ---
Author Organization [facility] Address [address] [place] [address] Care Team Providers Care Child Daycare Worker Name Role Phone Lalo Le MD Primary Care Prov ider Encounters Date Type Department Care Team Description 01/10/2025 8:00 AM CDT Ancillary Procedure [facility] Cardiology [address] [facility] [address] [place] [phone] Status post placement of implantable loop recorder (Primary Dx); Syncope, unspecified syncope type; Palpitations 12/08/2024 1:46 PM CDT - 12/08/2024 11:59 PM CDT Hospital Encounter [address] [address] Systemic lupus erythematosus with other organ involvement, unspecified SLE type (HCC); Fibromyalgia; High risk medication use Discharge Disposition: Discharge to home or self care 12/08/2024 12:10 PM CDT Lab [facility] Endocrinology Metabolism and Lipid [address] [facility] 5th [place] [address] Systemic lupus erythematosus with other organ involvement, unspecified SLE type (HCC); Fibromyalgia; High risk medication use 12/08/2024 11:00 AM CDT Office Visit [facility] Rheumatology [facility] 5th Floor [address] [place] [phone] Rosa Tapia MD Systemic lupus erythematosus with other organ involvement, unspecified SLE type (HCC) (Primary Dx); Fibromyalgia; High risk medication use 11/29/2024 7:45 AM CDT Ancillary Procedure [facility] Cardiology [address] [place] [phone] Status post placement of implantable loop recorder (Primary Dx); Syncope, unspecified syncope type; Palpitations 10/18/2024 Orders Only [facility] Cardiology [address] [place] [phone] Kit Scanlon MD Syncope, unspecified syncope type (Primary Dx); Status post placement of implantable loop recorder; Palpitations 10/18/2024 7:30 AM EDUCATION INTERN Ancillary Procedure [facility] Cardiology [address] [place] [phone] Status post placement of implantable loop recorder (Primary Dx); Syncope, unspecified syncope type; Palpitations from Last 3 Months Allergies Active Allergy Reactions Criticality Noted Date [...] mg total) by mouth daily 3 Active Warp 9Touch Verio Flex meter misc as directed 3 Active OneTouch Verio test strips strip USE TO TEST ONCE A DAY 3 Active Warp 9Touch Delica Plus Lancet 30 gauge misc USE [...] implantable loop record er 03/21/2018 Overview (02/19/2021): [employer]-Biomonitor III ILR. Dx; Syncope, Palpitations. DOI 02/16/2021. [place]. StormPinsronik remote. Medtronic Linq ILR explanted. Sinus tachycardia [...] Fibromyalgia Assessment & Plan (10/31/2021 5:38 PM EDUCATION INTERN): Trigger point pain and hand pain without exam findings suggestive of active inflammation. She remains off of lyrica at this time. - continue to monitor symptoms off of lyrica - continue physical therapy Systemic lupus erythematosus 12/08/2010 Overview (12/19/2017): Description: Systemic Lupus Erythematosus Assessment & Plan (10/31/2021 5:41 PM EDUCATION INTERN): Currently without exam features concerning for active [...] bursitis 12/08/2010 Overview (12/19/2017): Description: Trochanteric Bursitis Social History Tobacco Use Types Packs/Day Years [...] on file Legal Sex Female 9:06 AM EDUCATION INTERN Gender Identity Female 01/18/2020 10:01 AM CDT Sexual Orientation Straight 01/18/2020 10 :00 AM CDT Last Filed Vital Signs Vital Sign Reading Time Taken Comments Blood Pressure 115/78 12/08/2024 11:15 AM CDT Pulse 103 12/08/2024 11:15 AM CDT Temperature 36.8 C (98.3 F) 12/08/2024 11:15 AM CDT Respiratory Rate 16 07/25/2023 8:42 AM EDUCATION INTERN Oxygen Saturation 95% 09/21/2024 9:37 AM EDUCATION INTERN Inhaled Oxygen Concentration - - Weight 85.7 kg (189 lb) 12/08/2024 11:15 AM CDT Height 157.5 cm (5' 2 ) 12/08/2024 11:15 AM CDT Body Mass Index 34.57 12/08/2024 11:15 AM CDT Plan of Treatment Not on file Medical Devices Implanted Type Area Drywall Professional Device Identifier Shelf Expiration Date Model / Serial / Lot [employer] Device Closure Vascade Od5 Fr Femoral Artery [id number] - [id number] Implanted:Qty: 1 on 07/25/2023 by Naom Leblanc MD at [facility] [employer] 01/18/2024 [id number] / / [id number] Procedures Procedure Name Priority Date/Time Associated [...] CHECK - REMOTE Routine 10/18/2024 10:02 AM EDUCATION INTERN Syncope, unspecified syncope type Palpitations POCT LIPID PANEL Routine 09/21/2024 10:2 1 AM EDUCATION INTERN Lipid screening HEMOGLOBIN A1C Routine 06/02/2024 10:20 AM CDT Systemic lupus erythematosus with other organ involvement, unspecified SLE type (HCC) Fibromyalgia High risk medication use from Last 3 Months or Most Recently Relevant to Health Maintenance Results * DEVICE CHECK - REMOTE (01/10/2025 3:09 PM CDT) Anatomical Region Laterality Modality Other Narrative 01/13/2025 8:24 AM CDT [employer]Biomon[employer] III ILR. Dx; Syncope, Palpitations. DOI 02/16/2021. [place]. StormPinsronik remote. Routine ILR remote. Normal device function. Battery function-Ok. Presenting rhythm: VS, regular 90 bpm. Medications: ASA 81 mg, Propranolol Counters since last scheduled transmission on 11/29/2024. No auto or patient recorded episodes noted. See scanned report. [employer] remote f/u 02/21/2025. Kina Almeida, RN Kit Scanlon MD [facility] JATIN KENNEDY Final Result * Anti-double stranded DNA abs [...] BLOOD ORDERABLES Final Result Performing Organization Address [facility] de Phone Number [facility] [email or web address] [address] * C4 complement (12/08/2024 11:59 AM CDT) [facility] Complement C4 29.1 10.0 - 40.0 mg/dL Blood 12/08/2024 11:5 9 AM CDT 12/08/2024 2:19 PM CDT Rosa Tapia MD LAB BLOOD ORDERABLES Final Result Performing Organization Address [facility] de Phone Number [facility] [email or web address] [address] * (ABNORMAL) Urinalysis reflex to microscopic and culture Urine, clean voided (12/08/2024 11:59 AM CDT) [facility] Color, ur Yellow Yellow Clarity, ur Clear Clear [facility] Specific gravity, ur 1.025 1.003 - 1.030 [facility] pH, urine 6.5 [facility] Comment: Interpretive Data U rine pH is affected by diet, medications, systemic acid-base disturbances, and renal tubular function. pH may affect urinary stone formation. For example, urine pH below 6.0 may help reduce the tendency for calcium phosphate stones and pH greater than 6.0 may reduce the tendency for uric acid stone formation. Source: [facility] [email or web address] Current Interpretive Data was last revised on 2017 Protein, ur ql Trace Negative [facility] Glucose, ur ql Negative Negative [facility] Ketones, ur Negative Negative [facility] Bilirubin, ur Negative Negative [facility] Blood, ur Negative Negative [facility] Urobilinogen, ur <2.0 <2.0 mg/dL [facility] Nitrite, ur Negative Negative [facility] Leukocyte esterase, ur 3+(A) Negative [facility] UA reflex comment Reflex to microscopic UA will be performed. [facility] Urine, clean voided 12/08/2024 11:59 AM CDT 12/08/2024 2:19 PM CDT us Rosa Tapia MD LAB MICROBIOLOGY - GENERAL ORDERABLES Final Result [facility] Department [place] [address] * (ABNORMAL) CBC with auto differential (12/08/2024 [...] BLOOD ORDERABLES Final Result Performing Organization Address City/[facility] Co de Phone Number [facility] * (ABNORMAL) Urinalysis, microscopic only (12/08/2024 11:59 AM CDT) WBC, ur 21-50(A) 0 - 5 /HPF RBC, ur 11-20(A) 0 - 2 /HPF [facility] Epithelial cells, squamous, ur 1-5 0 - 5 /HPF [facility] Epithelial cells, renal, ur 1-5(A) 0 - 0 /HPF [facility] Bacteria, ur Trace(A) [facility] Mucous, ur Present(A) [facility] Calcium oxalate crystals, ur 2+(A) [facility] Culture Reflex Comment Reflex to urine culture will be performed. [facility] Urine, clean voided 12/08/2024 11:59 AM CDT 12/08/2024 2:19 PM CDT Rosa Tapia MD LAB URINE ORDERABLES Final Result Performing Organization Address City/[facility]/ZIP Co de Phone Number SHELLY ZAMUDIO [facility] Department [place] [address] * Erythrocyte sedimentation rate (12/08/2024 11:59 AM CDT) Erythrocyte sedimentation rate 10 1 - 30 mm/hr Blood 12/08/2024 11:5 9 AM CDT 12/08/2024 2:19 PM CDT Rosa Tapia MD LAB BLOOD ORDERABLES Final Result Performing Organization Address [facility] de Phone Number [facility] [place] [address] * Urine culture Urine, clean voided (12/08/2024 11:59 AM CDT) Report Final Report: Less than 100,000 colonies/mL (clinically insignificant growth based on current clinical standards) Organism (CLINICALLY INSIGNIFICANT GROWTH [facility] Urine, clean voided 12/08/2024 11:59 AM CDT 12/08/2024 4:14 PM CDT Narrative [facility] - 12/09/2024 6:38 PM CDT Urine culture reflexed based upon urinalysis results. Testing performed by [facility] ([phone]) Rosa Tapia MD LAB MICROBIOLOGY - GENERAL ORDERABLES Final Result Performing Organization Address [facility] de Phone Number [facility] [place] [address] * C3 complement (12/08/2024 11:59 AM CDT) Complement C3 165.0 90.0 - 180.0 mg/dL Blood 12/08/2024 11:5 9 AM CDT 12/08/2024 2:19 PM CDT Rosa Tapia MD LAB BLOOD ORDERABLES Final Result Performing Organization Address [facility] Co de Phone Number [facility] [place] [address] * CRP (acute phase) (12/08/2024 11:59 AM CDT) C-Reactive Protein, Acute 3.6 <5.0 mg/L [facility] Blood 12/08/2024 11:5 9 AM CDT 12/08/2024 12:51 PM CDT Rosa Tapia MD LAB BLOOD ORDERABLES Final Result [facility] * (ABNORMAL) [...] CARDIAC SERVICES PROCE DURES Final Result * DEVICE CHECK - REMOTE (10/18/2024 10:02 AM EDUCATION INTERN) Anatomical Region Laterality Modality Other Narrative 10/25/2024 12:26 PM EDUCATION INTERN Biotronik lllm implanted on February 16, 2021 [...] Continue to monitor remotely. Yordan Steinberg Device [employer] Ins[employer] Supervisor Kit Scanlon MD [facility] PROCE DURES Final Result * POCT lipid panel (09/21/2024 10:21 AM EDUCATION INTERN) Cholesterol, POC 152 mg/dL HDL, POC 45 mg/dL Triglycerides, POC 183 mg/dL LDL Cholesterol POC 70 mg/dL Chol/HDL Ratio, POC 1.5 Non-HDL Cholesterol, POC 106 mg/dL Cholesterol Total, POC 152 mg/dL Capillary blood 09/21/2024 1 0:21 AM EDUCATION INTERN Blanquita Morales INFORMATION TECHNOLOGY AUDITOR POINT OF CARE TEST ORDERA BLES Final Result from Last 3 Months or Most Recently Relevant to Health Maintenance Additional Health Concerns Infection Onset Date Last Indicated MDR gram neg/ESBL 06/02/2024 06/02/2024 Insurance [facility] MEDICARE [employer] MEDICARE AETNA MEDICARE Care Teams Child Daycare Worker Relationship Specialty Start Date End Date Lalo Le MD [address] [place] [address] PCP - General 06/21/16
--- OUTSIDE RECORDS SUMMARY | 2025-01-14 09:57 | XMS_ITS | Encounter Summary ---
Author Organization [facility] Address [address] [place] [address] Care Team Providers Care Well Logging Captain Mud Analysis Name Role Phone Lalo Le MD Primary Care Prov ider Encounter Details Date Type Department Care Team (Late st Contact Info) Description 01/20/2017 Orders Only [facility] ProviderMarquise MD [address] [place] [id number] Social History Tobacco Use Types Packs/Day Years Used Date Smoking Tobacco: Never Alcohol Use Standard Drinks/Week Comments Yes 0 (1 standard drink = 0.6 oz pur e alcohol) Comments Unknown Sex and Gender Information Value Date Recorded Sex Assigned at Not on file Legal Sex Female 9:06 AM [employer]BER [employer] Gender Identity Female 01/18/2020 10:01 AM CDT Sexual Orientation Straight 01/18/2020 10 :00 AM CDT documented as of this encounter Plan of Treatment Not on file documented as of this encounter Procedures Procedure Name Priority Date/Time Associated Diagnosis Comments CARDIOLOGY REPORT 01/20/2017 documented in this encounter Results * CARDIOLOGY REPORT (01/20/2017) Anatomical Region Laterality Modality Other Narrative 01/20/2017 Ordered by an unspecified provider. 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
== END 2025-01-14 09:50 | disposition home or self-care (01) ==
LOC: ANHAUDIO 09:49
PROVIDERS: PCP Family Medicine Adolescent Medicine; Visit Provider Nurse Practitioner Family
DX: H91.90 Unspecified hearing loss, unspecified ear (principal)
CPT/HCPCS: 92557; 92567

== ENCOUNTER 2025-04-11 11:05 | Outpatient (CLI) | payer MEDICARE, SELFPAY ==
--- NOTE | ~2025-04-11 | XR_ITS ---
AP and lateral views of the right hip Clinical history: Pain Findings: No acute fracture or dislocation is seen. Osseous alignment is anatomic. Right hip joint is intact. Soft tissues are unremarkable. Impression: No significant abnormality is seen. Reviewed, dictated and finalized at location M. Impression: No significant abnormality is seen.
== END 2025-04-11 11:06 | disposition home or self-care (01) ==
PROVIDERS: PCP Family Medicine Adolescent Medicine; Visit Provider Family Medicine Adolescent Medicine
DX: M25.551 Pain in right hip (principal)
CPT/HCPCS: 73502